=== PATIENT | male | born 1975 | race Caucasian/White ===

== ENCOUNTER 2023-04-07 13:29 | Outpatient (OUT) | payer OTHER, SELFPAY ==
[2023-04-07 14:21] LABS: Estimated Average Glucose 108 mg/dL; Glycohemoglobin A1C 5.4 % (4.5-6.2)
[2023-04-07 14:43] LABS: Alanine Aminotransferase 58 U/L (16-63); Albumin Globulin Ratio 1.1; Albumin Level 4.1 g/dL (3.4-5.0); Alkaline Phosphatase 60 U/L (46-116); Anion Gap 13.9; Aspartate Amino Transferase 20 U/L (15-37); BUN Creatinine Ratio 12.7; Bilirubin Total 0.9 mg/dL (0.2-1.0); Calcium 9.1 mg/dL (8.5-10.1); Carbon Dioxide 30.4 mmol/L (21.0-32.0); Chloride 101 mmol/L (98-107); Cholesterol 184 mg/dL (<=200); Estimated GFR (African America >60 (>=60); Estimated GFR (Non-African Ame >60 (>=60); Globulin 3.8 g/dL; Glucose 104 mg/dL (74-106); HDL Cholesterol 61 mg/dL (40-60); Potassium 4.3 mmol/L (3.5-5.1); Sodium 141 mmol/L (136-145); Total Protein 7.9 g/dL (6.4-8.2); Triglycerides 151 mg/dL (<=150); VLDL CHOLESTEROL 30.2 mg/dL
== END 2023-04-07 13:30 | disposition home or self-care (01) ==
LOC: LAB 13:29
PROVIDERS: PCP Family Medicine; Visit Provider Family Medicine
DX: Z00.00 Encounter for general adult medical examination without abnormal findings (principal); E78.49 Other hyperlipidemia; R73.01 Impaired fasting glucose; Z79.899 Other long term (current) drug therapy
CPT/HCPCS: 36415; 80053; 80061; 83036

== ENCOUNTER 2023-12-22 14:40 | Outpatient (OUT) | payer OTHER, SELFPAY ==
[2023-12-22 15:02] LABS: Basophils Absolute Auto 0.1 10^3/uL (0.0-0.1); Basophils Percent Auto 0.7 % (0.2-2.0); Eosinophils Absolute Auto 0.2 10^3/uL (0.0-0.7); Eosinophils Percent Auto 2.4 % (0.9-7.0); Hematocrit 46.6 % (42.0-54.0); Hemoglobin 16.9 g/dL (14.0-18.0); Immature Granulocytes Abs Auto 0.03 10^3/uL (0.00-0.03); Immature Granulocytes Pct Auto 0.4 % (0.0-0.5); Lymphocytes Absolute Auto 2.1 10^3/uL (1.2-3.8); Lymphocytes Percent Auto 29.8 % (20.5-60.0); Mean Corpuscular HGB Conc 36.3 g/dL (29.9-35.2); Mean Corpuscular Hemoglobin 31.2 pg (25.9-34.0); Mean Platelet Volume 9.2 fL (9.5-13.5); Monocytes Absolute Auto 0.7 10^3/uL (0.3-0.8); Monocytes Percent Auto 10.1 % (1.7-12.0); Neutrophils Percent Auto 56.6 % (43.0-75.0); Platelet Count 242 10^3/uL (150-450); Red Blood Count 5.42 10^6/uL (4.70-6.10); Red Cell Distribution Width 11.2 % (11.0-15.0)
--- OUTSIDE RECORDS SUMMARY | 2023-12-22 15:03 | XMS_ITS | CCD ---
Author Organization [facility] Care Team Providers Care Shirt Operator Name Role Phone MODE LANDRY Admitting Unavailable MODE LANDRY Attending Unavailable RAJNI, LAWRENCE Primary Care Unavailable ALFREDO PETTY Referring Unavailable HOY, DR BRAVO Admitting Unavailable HOY, DR BRAVO Attending Unavailable HOY, DR BRAVO Primary Care Unavailable HOY, DR BRAVO Consulting Unavailable HOY, DR BRAVO Admitting Unavailable HOY, DR BRAVO Attending Unavailable HOY, DR BRAVO Primary Care Unavailable HOY, DR BRAVO Consulting Unavailable HOY, DR BRAVO Admitting Unavailable HOY, DR BRAVO Attending Unavailable HOY, DR BRAVO Primary Care Unavailable HOY, DR BRAVO Consulting Unavailable MISC, DR PRECIADO Admitting Unavailable MISC, DR PRECIADO Attending Unavailable HOY, DR BRAVO Primary Care Unavailable MISC, DR PRECIADO Consulting Unavailable HOY, DR BRAVO Admitting Unavailable HOY, DR BRAVO Attending Unavailable HOY, DR BRAVO Primary Care Unavailable HOY, DR BRAVO Consulting Unavailable HOY, DR BRAVO Admitting Unavailable HOY, DR BRAVO Attending Unavailable HOY, DR BRAVO Primary Care Unavailable HOY, DR BRAVO Consulting Unavailable DON DC Referring Unavailable DC, DON Admitting Unavailable DC, DON Referring Unavailable DC, DON Attending Unavailable DC, DON Attending Unavailable DC, DON Attending Unavailable Ange Campbell Unavailable Medications Current Medications Medication Drug Class(es) Dates Sig (Normalized) Sig (Original) amoxicillin 875 mg oral tablet (1 source) Penicillin-class Antibacterial Start: 01-25-2023 take 1 tablet by mouth every eight hours Amoxicillin 875 MG 1 tablet Orally three times a day for 7 days Jan, Active ezetimibe 10 mg oral tablet (1 source) Dietary Cholesterol Absorption Inhibitor Ezetimibe 10 MG Oral for 21 Days Active famotidine 40 mg oral tablet (1 source) Histamine-2 Receptor Antagonist Famotidine 40 MG Oral for 21 Days Active simvastatin 40 mg oral tablet (1 source) HMG-CoA Reductase Inhibitor Simvastatin 40 MG Oral for 21 Days Active sucralfate 1000 mg oral tablet (1 source) Aluminum Complex Sucralfate 1 GM Oral for 21 Days Active Problems Active Problems Problem Classification Problem Date Documented Date Episodic/Chronic Disorders of lipid metabolism (1 source) Pure hypercholesterolemia, unspecified; Translations: [PURE HYPERCHOLESTEROLEMIA UNSPEC] Onset: 3 Chronic Esophageal disorders (2 sources) Gastro-esophageal reflux disease without esophagitis; Translations: [Gastro-esophageal reflux disease without esophagitis] Onset: 3 Chronic Esophageal disorders (2 sources) Esophageal disorders; Translations: [Gastro-esophageal reflux disease with esophagitis, without bleeding] Onset: 3 Other screening for suspected conditions (not mental disorders or infectious disease) (1 source) Encounter for screening for malignant neoplasm of prostate; Translations: [ENC SCREEN MALIG NEOPLASM PROSTATE] Onset: 3 Episodic Other upper respiratory disease (1 source) Nasal congestion; Translations: [NASAL CONGESTION] Onset: 2 Episodic Otitis media and related conditions (1 source) Otitis media, unspecified, bilateral Episodic Unclassified (3 sources) CONTACT W/AND (SUSP) EXPOS COVID-19; Translations: [CONTACT W/AND (SUSP) EXPOS COVID-19] Onset: 2 Unclassified (1 source) COUGH, UNSPECIFIED; Translations: [COUGH, UNSPECIFIED] Onset: 2 Viral infection (1 source) COVID-19; Translations: [COVID-19] Onset: 2 Past or Other Problems Problem Classification Problem Date Documented Da te Episodic/Chronic Unclassified (1 source) CONTACT W/AND (SUSP) EXPOS COVID-19; Translations: [CONTACT W/AND (SUSP) EXPOS COVID-19] Onset: 03-12-2022 Unclassified (1 source) Contact with and (suspected) exposure to covid-19 Z20.822 Results Test Name Value Interpretation Reference Range Facility COVID Quick Testingon 2022 Result Negative [facility] Other [place] ESOPHAGUS BARIUM SWALLOWo n 05-21-2022 FL ESOPHAGUS BARIUM SWALLOW FL ESOPHAGUS BARIUM SWALLOW 05/21/2022 8:59 AM SIGNS AND SYMPTOMS: Gastro esophageal reflux PROTOCOL: Fluoroscopic images of the esophagus were obtained after oral gas crystals redemonstration and during administration of barium paste contrast material. COMPARISON: None FINDINGS: There is normal transit of oral contrast through the esophagus and gas esophageal junction. Normal esophageal motility is demonstrated fluoroscopically. There is no evidence of mucosal thickening, mass, ulceration, or stricture. No active gastroesophageal reflux was elicited during the exam. Cumulative air Kerma: 96.99 mGy IMPRESSION: No active gastroesophageal reflux was elicited during the exam. Normal esophagram. Electronically signed: Rad Hollingsworth. Normal [facility] Follow-Upon 05-21-2022 Follow-Up [id number] Hayden Quiñones heber 1975 M Date Provider Department Center 05/21/2022 454-DON DC [facility] SURG Second Fl Family History Problem Relation Age of Onset Diabetes Mother Heart disease Father Family Status - Relation Status Age at Mother Father Level of Service:03820 [place] OFFICE/OUTPATIENT ESTABLISHED LOW [facility] 20-29 MIN Reason for Visit and Comments: Follow-up [503918] - Glenn is here today for a follow up visit for GERD, s/p EGD and esophogram. Normal [facility] 29on 05-15-2022 29 Encounter addended b y: Deedee Almazan RN on: 05/16/2022 1:53 PM Actions taken: Flowsheet accepted, Contacts section saved [facility] HISTOLOGY - TISSUE EXAMon LAB AP CASE REPORT [facility] Comment on above: Result Comment: Surg ical Pathology Case: [id number] Authorizing Provider: Don Dc MD Collected: 05/15/2022 1258 [facility]: 05/15/2022 1433 [facility] Endoscopy Pathologist: Sho Mercado MD Specimen: Gastroesophageal Junction, GEJUNTION r/o Barrettes Esophagus Performed By: #### L [id number] ####[facility] ([facility])[address] [place] [address] LAB AP CLINICAL INFORMATION Order Diagnoses Normal [facility] Comment on above: Result Comment: K21. 9 - Gastroesophageal reflux disease without esophagitis [ICD-10-CM] Performed By: #### L [id number] ####[facility] ([facility])[address] [place] [address] LAB AP GROSS DESCRIPTION [facility] Comment on above: Result Comment: Daina Bojorquez astroesophageal Junction. Part A is received in formalin labeled Glenn Sberna and GE JUNTION r/o Barrettes Esophagus. It consists of 2 pieces of andrade-pink, irregular mucosal tissue measuring 0.3 cm and 0.2 cm which are submitted in toto in 1 cassette. Marquez Mora, Pathologists' Key Carrier Performed By: #### L [id number] ####[facility] ([facility])[address] [place] [address] LAB AP MICROSCOPIC DESCRIPTION Microscopic examination performed. 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 -Esophageal squamous mucosa with no specific pathologic changes. -No evidence of intestinal metaplasia or dysplasia. Performed By: #### L [id number] ####[facility] ([facility])[address] [place] [address] HPon 05-15-2022 HP H&P reviewed. The yesica saunders was examined and there are no changes to the H&P. Normal [facility] NURSNOTEon 05-15-[address] Dc aware of vitals. Normal [facility] Consulton 05-01-2022 Consult [id number] Hayden Quiñoens heber 1975 M Date Provider Department Center 05/01/2022 Kiana-DON DC [facility] SURG Second Fl Family History Problem Relation Age of Onset Diabetes Mother Heart disease Father Family Status - Relation Status Age at Mother Father Level of Service:14681 [place] OFFICE/OUTPATIENT NEW LOW MDM 30-44 MINUTES Reason for Visit and Comments: Consult [484] - Glenn is here today for GERD. Patient states that he did have an EGD about 1 year with biopsy that was normal. Normal [facility] HPon 05-01-2022 HP Subjective Patient ID: Glenn Quiñones is a 46 y.o. male who presents for Consult (Gelnn is here today for GERD. Patient states that he did have an EGD about 1 year with biopsy that was normal. ). HPI 46 years old white male is complaining of heartburn, epigastric pain and the chest pain for around 2 years. He is treated with Carafate and the famotidine with inconsistent effect. Review of Systems Constitutional: Negative. HENT: Negative. Eyes: Negative. Respiratory: Negative. Cardiovascular: Negative. Gastrointestinal: Negative. Endocrine: Negative. Genitourinary: Negative. Musculoskeletal: Negative. Skin: Negative. Allergic/Immunologic: Negative. Neurological: Negative. Hematological: Negative. Psychiatric/Behavioral: Negative. Objective Visit Vitals BP 134/87 (BP Location: Left arm, Patient Position: Sitting) Pulse 94 Temp 37.1 ???C (98.7 ???F) Physical Exam Constitutional: Appearance: Normal appearance. He is obese. HENT: Head: Normocephalic and atraumatic. Eyes: Pupils: Pupils are equal, round, and reactive to light. Cardiovascular: Rate and Rhythm: Normal rate. Pulmonary: Effort: Pulmonary effort is normal. Abdominal: General: Abdomen is flat. Bowel sounds are normal. Palpations: Abdomen is soft. Musculoskeletal: General: Normal range of motion. Cervical back: Normal range of motion. Skin: Capillary Refill: Capillary refill takes more than 3 seconds. Neurological: Mental Status: He is alert. Assessment/Plan Heartburn Epigastric pain Schedule EGD and esophagram. No diagnosis found. No orders of the defined types were placed in this encounter. No results found for this or any previous visit (from the past 36 hour(s)). No follow-ups on file. Normal [facility] LIPID PROFILEon 04-25-2022 CHOL-HDL RATIO NORM SEE BELOW Normal [facility] Comment on above: Result Comment: 3.3 - 4.4 LOW RISK 4.4 - 7.1 AVERAGE RISK 7.1 - 11.0 MODERATE RISK >11.0 HIGH RISK Performed By: #### L IPID #### [facility] [address] [address] [address] Enriqueta Torres Cholesterol [Mass/Vol] 229 mg/dL Critically high <=200 [facility] Comment on above: Performed By: #### L IPID #### [facility] [address] [address] [address] Enriqueta Torres Cholesterol in HDL [Mass/Vol] 51 mg/dL Normal 40-60 [facility] Comment on above: Performed By: #### L IPID #### [facility] [address] [address] [address] Enriqueta Torres Cholesterol in LDL [Mass/Vol] 126.4 mg/dL Normal [facility] Comment on above: Performed By: #### L IPID #### [facility] [address] [address] [address] Enriqueta Torres Cholesterol.total /Cholesterol in HDL [Mass ratio] 4.5 {ratio} Normal [facility] Comment on above: Performed By: #### L IPID #### [facility] [address] [address] [address] Enriqueta Torres HDL NORMAL > or = 60 mg/dl - LO W CARDIOVASCULAR RISK <40 mg/dl - HIGH CARDIOVASCULAR RISK Normal [facility] Comment on above: Performed By: #### L IPID #### [facility] [address] [address] [address] Enriqueta Torres LDL CALC NORMAL SEE BELOW Normal [facility] Comment on above: Result Comment: <100 mg/dl OPTIMAL 100 - 129 mg/dl NEAR OR ABOVE OPTIMAL 130 - 159 mg/dl BORDERLINE HIGH 160 - 189 mg/dl HIGH >190 mg/dl VERY HIGH Performed By: #### L IPID #### [facility] [address] [address] [address] Enriqueta Torres Triglyceride [Mass/Vol] 258 mg/dL Critically high <=150 [facility] Comment on above: Performed By: #### L IPID #### [facility] [address] [address] [address] Enriqueta Torres VLDL CALC 51.6 mg/dL Normal [facility] Comment on above: Performed By: #### L IPID #### [facility] [address] [place] [address] Dr. Enriqueta Torres OCC BLD IMMUNO SCREENon OCCULT BLOOD Negative Normal NEGATIVE [facility] Comment on above: Performed By: #### O BSCRN #### [facility] [address] [place] [address] Dr. Enriqueta Torres TESTOSTERONE, TOTALon 2022 Testosterone [Mass/Vol] 285 ng/dL Normal 264-916 [facility] Comment on above: Result Comment: Adul t male reference interval is based on a population of healthy nonobese males (BMI <30) between 19 and 39 years old. armando Mason.al. JCEM 2017,102;8802-8871. PMID: [id number]. Performed By: #### T ESTTOT #### [facility] [address] [place] [address] Dr. Enriqueta Torres CBC AUTO DIFFon 04-24-2022 BASO # 0.1 103/ul Normal 0.0-0.1 [facility] Comment on above: Performed By: #### L IPID #### [facility] [address] [place] [address] Dr. Enriqueta Torres Basophils/100 WBC (Bld) 0.6 % Normal 0.2-2.0 [facility] Comment on above: Performed By: #### L IPID #### [facility] [address] [place] [address] Dr. Enriqueta Torres EO # 0.1 103/ul Normal 0.0-0.7 [facility] Comment on above: Performed By: #### L IPID #### [facility] [address] [place] [address] Dr. Enriqueta Torres Eosinophils/100 WBC (Bld) 1.1 % Normal 0.9-7.0 [facility] Comment on above: Performed By: #### L IPID #### [facility] [address] [place] [address] Dr. Enriqueta Torres Erythrocyte distribution width (RBC) [Ratio] 12.2 % Normal 11.0-15.0 [facility] Comment on above: Performed By: #### L IPID #### [facility] [address] [place] [address] Dr. Enriqueta Torres Hematocrit (Bld) [Volume fraction] 46.2 % Normal 42.0-54.0 [facility] Comment on above: Performed By: #### L IPID #### [facility] [address] [place] [address] Dr. Enriqueta Torres Hemoglobin (Bld) [Mass/Vol] 16.5 g/dL Normal 14.0-18.0 [facility] Comment on above: Performed By: #### L IPID #### [facility] [address] [place] [address] Dr. Enriqueta Torres IG # 0.06 10e3/ul Critically high 0.00-0.03 [facility] Comment on above: Performed By: #### L IPID #### [facility] [address] [place] [address] Dr. Enriqueta Torres IG % 0.7 % Critically high 0.0-0.5 [facility] Comment on above: Performed By: #### L IPID #### [facility] [address] [place] [address] Dr. Enriqueta Torres LYMPH # 2.6 103/ul Normal 1.2-3.8 [facility] Comment on above: Performed By: #### L IPID #### [facility] [address] [place] [address] Dr. Enriqueta Torres Lymphocytes/100 WBC (Bld) 31.2 % Normal 20.5-60.0 [facility] Comment on above: Performed By: #### L IPID #### [facility] [address] [place] [address] Dr. Enriqueta Torres MANUAL DIFF REQ NO Normal [facility] Comment on above: Performed By: #### L IPID #### [facility] [address] [place] [address] Dr. Enriqueta Torres MCH (RBC) [Entitic mass] 31.6 pg Normal 25.9-34.0 [facility] Comment on above: Performed By: #### L IPID #### [facility] [address] [place] [address] Dr. Enriqueta Torres MCHC (RBC) [Mass/Vol] 35.7 g/dL Critically high 29.9-35.2 [facility] Comment on above: Performed By: #### L IPID #### [facility] [address] [address] [address] Enriqueta Torres MCV (RBC) [Entitic vol] 88.5 fL Normal 80.0-94.0 [facility] Comment on above: Performed By: #### L IPID #### [facility] [address] [place] [address] Dr. Enriqueta Torres MONO # 0.8 103/ul Normal 0.3-0.8 [facility] Comment on above: Performed By: #### L IPID #### [facility] [address] [place] [address] Dr. Enriqueta Torres Monocytes/100 WBC (Bld) 10.2 % Normal 1.7-12.0 [facility] Comment on above: Performed By: #### L IPID #### [facility] [address] [place] [address] Dr. Enriqueta Torres NEUT # 4.6 103/ul Normal 1.4-6.5 [facility] Comment on above: Performed By: #### L IPID #### [facility] [address] [place] [address] Dr. Enriqueta Torres Neutrophils/100 WBC (Bld) 56.2 % Normal 43.0-75.0 [facility] Comment on above: Performed By: #### L IPID #### [facility] [address] [place] [address] Dr. Enriqueta Torres Platelet mean volume (Bld) [Entitic vol] 9.1 fL Critically low 9.5-13.5 [facility] Comment on above: Performed By: #### L IPID #### [facility] [address] [address] [address] Enriqueta Torres PLT 260 103/ul Normal 150-450 [facility] Comment on above: Performed By: #### L IPID #### [facility] [address] [address] [address] Enriqueta Torres RBC 5.22 106/ul Normal 4.70-6.10 [facility] Comment on above: Performed By: #### L IPID #### [facility] [address] [address] [address] Enriqueta Torres WBC 8.2 103/ul Normal 4.0-11.0 [facility] Comment on above: Performed By: #### L IPID #### [facility] [address] [place] [address] Dr. Enriqueta Torres DIRECT LDLon 04-24-2022 Cholesterol in LDL [Mass/Vol] 129 mg/dL Normal [facility] Comment on above: Performed By: #### O BSCRN #### [facility] [address] [place] [address] Dr. Enriqueta Torres DLDL NORMAL SEE BELOW Normal [facility] Comment on above: Result Comment: <100 mg/dl OPTIMAL 100 - 129 mg/dl NEAR OR ABOVE OPTIMAL 130 - 159 mg/dl BORDERLINE HIGH 160 - 189 mg/dl HIGH >190 mg/dl VERY HIGH Performed By: #### O BSCRN #### [facility] [address] [place] [address] Dr. Enriqueta Torres FREE THYROXINE INDEX T7on FTI 2.31 Normal 1.30-4.50 [facility] Comment on above: Performed By: #### L IPID #### [facility] [address] [place] [address] Dr. Enriqueta Torres T3U 34.0 % Normal 33.0-40.0 [facility] Comment on above: Performed By: #### L IPID #### [facility] [address] [place] [address] Dr. Enriqueta Torres T4 [Mass/Vol] 6.80 ug/dL Normal 4.50-12.10 [facility] Comment on above: Performed By: #### L IPID #### [facility] [address] [place] [address] Dr. Enriqueta Torres GLYCOHEMOGLOBIN A1Con 2022 ADA RECOMMENDATION SEE BELOW Normal [facility] Comment on above: Result Comment: ADA RECOMMENDED LIMIT 4.0 - 6.0 ADA THERAPEUTIC TARGET < 7.0 ACTION SUGGESTED > 7.0 Performed By: #### L IPID #### [facility] [address] [place] [address] Dr. Enriqueta Torres Glucose [Mass/Vol] 126 mg/dL Normal [facility] Comment on above: Performed By: #### L IPID #### [facility] [address] [place] [address] Dr. Enriqueta Torres HbA1c (Bld) [Mass fraction] 6.0 % Normal 4.5-6.2 [facility] Comment on above: Performed By: #### L IPID #### [facility] [address] [place] [address] Dr. Enriqueta Torres LIPID PROFILEon 04-24-2022 CHOL-HDL RATIO NORM SEE BELOW Normal [facility] Comment on above: Result Comment: 3.3 - 4.4 LOW RISK 4.4 - 7.1 AVERAGE RISK 7.1 - 11.0 MODERATE RISK >11.0 HIGH RISK Performed By: #### L IPID #### [facility] [address] [place] [address] Dr. Enriqueta Torres Cholesterol [Mass/Vol] 250 mg/dL Critically high <=200 [facility] Comment on above: Performed By: #### L IPID #### [facility] [address] [place] [address] Dr. Enriqueta Torres Cholesterol in HDL [Mass/Vol] 42 mg/dL Normal 40-60 [facility] Comment on above: Performed By: #### L IPID #### [facility] [address] [place] [address] Dr. Enriqueta Torres Cholesterol.total /Cholesterol in HDL [Mass ratio] 6.0 {ratio} Normal [facility] Comment on above: Performed By: #### L IPID #### [facility] [address] [address] [address] Enriqueta Torres HDL NORMAL > or = 60 mg/dl - LO W CARDIOVASCULAR RISK <40 mg/dl - HIGH CARDIOVASCULAR RISK Normal [facility] Comment on above: Performed By: #### L IPID #### [facility] [address] [address] [address] Enriqueta Torres LDL CALC NORMAL SEE BELOW Normal [facility] Comment on above: Result Comment: <100 mg/dl OPTIMAL 100 - 129 mg/dl NEAR OR ABOVE OPTIMAL 130 - 159 mg/dl BORDERLINE HIGH 160 - 189 mg/dl HIGH >190 mg/dl VERY HIGH Performed By: #### L IPID #### [facility] [address] [place] [address] Dr. Enriqueta Torres Triglyceride [Mass/Vol] 507 mg/dL Critically high <=150 [facility] Comment on above: Performed By: #### L IPID #### [facility] [address] [place] [address] Dr. Enriqueta Torres VLDL CALC 101.4 mg/dL Normal [facility] Comment on above: Performed By: #### L IPID #### [facility] [address] [place] [address] Dr. Enriqueta Torres PROF 14(COMP METB)on 023 Albumin [Mass/Vol] 4.2 g/dL Normal 3.4-5.0 [facility] Comment on above: Performed By: #### L IPID #### [facility] [address] [place] [address] Dr. Enriqueta Torres Albumin/Globulin [Mass ratio] 1.2 {ratio} Normal [facility] Comment on above: Performed By: #### L IPID #### [facility] [address] [place] [address] Dr. Enriqueta Torres ALP [Catalytic activity/Vol] 69 U/L Normal 46-116 [facility] Comment on above: Performed By: #### L IPID #### [facility] [address] [place] [address] Dr. Enriqueta Torres ALT [Catalytic activity/Vol] 69 U/L Critically high 16-63 [facility] Comment on above: Performed By: #### L IPID #### [facility] [address] [address] [address] Enriqueta Torres Anion gap [Moles/Vol] 13.3 mmol/L Normal [facility] Comment on above: Performed By: #### L IPID #### [facility] [address] [address] [address] Enriqueta Torres AST [Catalytic activity/Vol] 20 U/L Normal 15-37 [facility] Comment on above: Performed By: #### L IPID #### [facility] [address] [address] [address] Enriqueta Torres Bilirubin [Mass/Vol] 1.0 mg/dL Normal 0.2-1.0 [facility] Comment on above: Performed By: #### L IPID #### [facility] [address] [address] [address] Enriqueta Torres Calcium [Mass/Vol] 9.4 mg/dL Normal 8.5-10.1 [facility] Comment on above: Performed By: #### L IPID #### [facility] [address] [address] [address] Enriqueta Torres Chloride [Moles/Vol] 99 mmol/L Normal 98-107 [facility] Comment on above: Performed By: #### L IPID #### [facility] [address] [address] [address] Enriqueta Torres CO2 [Moles/Vol] 30.0 mmol/L Normal 21.0-32.0 [facility] Comment on above: Performed By: #### L IPID #### [facility] [address] [address] [address] Erniqueta Torres Creatinine [Mass/Vol] 1.01 mg/dL Normal 0.70-1.30 [facility] Comment on above: Performed By: #### L IPID #### [facility] [address] [address] [address] Enriqueta Torres EGFR-AF WELSH >60 Normal >=60 [facility] Comment on above: Performed By: #### L IPID #### [facility] [address] [address] [address] Enriqueta Torres EGFR-NON AF WELSH >60 Normal >=60 [facility] Comment on above: Performed By: #### L IPID #### [facility] [address] [address] [address] Enriqueta Torres Globulin (S) [Mass/Vol] 3.5 g/dL Normal [facility] Comment on above: Performed By: #### L IPID #### [facility] [address] [address] [address] Enriqueta Torres Glucose [Mass/Vol] 134 mg/dL Critically high 74-106 [facility] Comment on above: Performed By: #### L IPID #### [facility] [address] [place] [address] Dr. Enriqueta Torres Potassium [Moles/Vol] 4.3 mmol/L Normal 3.5-5.1 [facility] Comment on above: Performed By: #### L IPID #### [facility] [address] [address] [address] Enriqueta Torres Protein [Mass/Vol] 7.7 g/dL Normal 6.4-8.2 [facility] Comment on above: Performed By: #### L IPID #### [facility] [address] [place] [address] Dr. Enriqueta Torres Sodium [Moles/Vol] 138 mmol/L Normal 136-145 [facility] Comment on above: Performed By: #### L IPID #### [facility] [address] [address] [address] Enriqueta Torres Urea nitrogen [Mass/Vol] 17.0 mg/dL Normal 7.0-18.0 [facility] Comment on above: Performed By: #### L IPID #### [facility] [address] [address] [address] Enriqueta Torres Urea nitrogen/Creatini ne [Mass ratio] 16.8 mg/mg Normal [facility] Comment on above: Performed By: #### L IPID #### [facility] [address] [address] [address] Enriqueta Torres TSHon 04-24-2022 TSH 1.606 uIU/mL Normal 0.358-3.740 [facility] Comment on above: Performed By: #### L IPID #### [facility] [address] [place] [address] Dr. Enriqueta Torres Covid-19 PCR ([facility])on 02-15 SARS-CoV-2 (COVID-19) RNA CESAR+probe Ql (Unsp spec) Detected Critically abnormal NOT DETECTED [facility] Comment on above: Result Comment: This test is not yet approved or cleared by the [place] FDA. When there are no FDA-approved or cleared tests available, and other criteria are met, FDA can make tests available under an emergency access mechanism called an Emergency Use Authorization (EUA). The EUA for this test is supported by the [place] of Health and Human Service's declaration that circumstances exist to justify the emergency use of in vitro diagnostics for the detection and/or diagnosis of the virus that causes COVID-19. This EUA will remain in effect for the duration of the COVID-19 declaration justifying emergency of IVDs, unless it is terminated or revoked by the FDA (after which the test may no longer be used). Performed By: #### O BSCRN #### [facility] [address] [place] [address] Dr. Enriqueta Torres INFLUENZA A AND B AGon 03-12 [facility] SEE BELOW Normal [facility] Comment on above: Result Comment: Nega tive for Flu A protein angiten. Infection due to Flu A cannot be ruled out. Flu A angiten in the sample may be below the detection limit of the test. Performed By: #### L IPID #### [facility] [address] [place] [address] Dr. Enriqueta Torres [facility] SEE BEL[facility] Normal [facility] Comment on above: Result Comment: Nega tive for Flu B protein antigen. Infection due to Flu B cannot be ruled out. Flu B antigen in the sample may be below the detection limit of the test. Performed By: #### L IPID #### [facility] [address] [place] [address] Dr. Enriqueta Torres INFLUENZA A AG Negative Normal NEGATIVE SEE COMMENT [facility] Comment on above: Performed By: #### L IPID #### [facility] [address] [place] [address] Dr. Enriqueta Torres INFLUENZA B AG Negative Normal NEGATIVE SEE COMMENT [facility] Comment on above: Performed By: #### L IPID #### [facility] [address] [place] [address] Dr. Enriqueta Torres INTERNAL CONTROLS Within Normal Limits Normal Wi thin Normal Limits [facility] Comment on above: Performed By: #### L IPID #### [facility] [address] [place] [address] Dr. Enriqueta Torres Covid-19 PCR ([facility])on SARS-CoV-2 (COVID-19) RNA CESAR+probe Ql (Unsp spec) Not detected Normal NOT DETECTED [facility] Comment on above: Result Comment: When diagnostic testing is negative, the possibility of a false negative should be considered in the context of a patient's recent exposures and the presence of clinical signs and symptoms consistent with SARS-CoV-2. This test is not yet approved or cleared by the [place] FDA. When there are no FDA-approved or cleared tests available, and other criteria are met, FDA can make tests available under an emergency access mechanism called an Emergency Use Authorization (EUA). The EUA for this test is supported by the [place] of Health and Human Service's declaration that circumstances exist to justify the emergency use of in vitro diagnostics for the detection and/or diagnosis of the virus that causes COVID-19. This EUA will remain in effect for the duration of the COVID-19 declaration justifying emergency of IVDs, unless it is terminated or revoked by the FDA (after which the test may no longer be used). Performed By: #### O BSCRN #### [facility] [address] [place] [address] Dr. Enriqueta Torres OCC BLD IMMUNO SCREENon 06-16 OCCULT BLOOD Negative Normal NEGATIVE [facility] Comment on above: Performed By: #### O BSCRN #### [facility] [address] [address] [address] Enriqueta Torres CBC AUTO DIFFon 07-04-2021 BASO # 0.1 103/ul Normal 0.0-0.1 [facility] Comment on above: Performed By: #### C BC #### [facility] [address] [address] [address] Enriqueta Torres Basophils/100 WBC (Bld) 0.8 % Normal 0.2-2.0 [facility] Comment on above: Performed By: #### C BC #### [facility] [address] [address] [address] Enriqueta Torres EO # 0.1 103/ul Normal 0.0-0.7 [facility] Comment on above: Performed By: #### C BC #### [facility] [address] [place] [address] Dr. Enriqueta Torres Eosinophils/100 WBC (Bld) 1.8 % Normal 0.9-7.0 [facility] Comment on above: Performed By: #### C BC #### [facility] [address] [address] [address] Enriqueta Torres Erythrocyte distribution width (RBC) [Ratio] 11.5 % Normal 11.0-15.0 [facility] Comment on above: Performed By: #### C BC #### [facility] [address] [place] [address] Dr. Enriqueta Torres Hematocrit (Bld) [Volume fraction] 48.2 % Normal 42.0-54.0 [facility] Comment on above: Performed By: #### C BC #### [facility] [address] [address] [address] Enriqueta Torres Hemoglobin (Bld) [Mass/Vol] 16.9 g/dL Normal 14.0-18.0 [facility] Comment on above: Performed By: #### C BC #### [facility] [address] [address] [address] Enriqueta Torres IG # 0.04 10e3/ul Critically high 0.00-0.03 [facility] Comment on above: Performed By: #### C BC #### [facility] [address] [place] [address] Dr. Enriqueta Torres IG % 0.5 % Normal 0.0-0.5 [facility] Comment on above: Performed By: #### C BC #### [facility] [address] [place] [address] Dr. Enriqueta Torres LYMPH # 1.8 103/ul Normal 1.2-3.8 [facility] Comment on above: Performed By: #### C BC #### [facility] [address] [place] [address] Dr. Enriqueta Torres Lymphocytes/100 WBC (Bld) 24.0 % Normal 20.5-60.0 [facility] Comment on above: Performed By: #### C BC #### [facility] [address] [place] [address] Dr. Enriqueta Torres MANUAL DIFF REQ NO Normal [facility] Comment on above: Performed By: #### C BC #### [facility] [address] [place] [address] Dr. Enriqueta Torres MCH (RBC) [Entitic mass] 30.2 pg Normal 25.9-34.0 [facility] Comment on above: Performed By: #### C BC #### [facility] [address] [place] [address] Dr. Enriqueta Torres MCHC (RBC) [Mass/Vol] 35.1 g/dL Normal 29.9-35.2 [facility] Comment on above: Performed By: #### C BC #### [facility] [address] [place] [address] Dr. Enriqueta Torres MCV (RBC) [Entitic vol] 86.1 fL Normal 80.0-94.0 [facility] Comment on above: Performed By: #### C BC #### [facility] [address] [place] [address] Dr. Enriqueta Torres MONO # 0.8 103/ul Normal 0.3-0.8 [facility] Comment on above: Performed By: #### C BC #### [facility] [address] [place] [address] Dr. Enriqueta Torres Monocytes/100 WBC (Bld) 10.2 % Normal 1.7-12.0 [facility] Comment on above: Performed By: #### C BC #### [facility] [address] [place] [address] Dr. Enriqueta Torres NEUT # 4.8 103/ul Normal 1.4-6.5 [facility] Comment on above: Performed By: #### C BC #### [facility] [address] [place] [address] Dr. Enriqueta Torres Neutrophils/100 WBC (Bld) 62.7 % Normal 43.0-75.0 [facility] Comment on above: Performed By: #### C BC #### [facility] [address] [place] [address] Dr. Enriqueta Torres Platelet mean volume (Bld) [Entitic vol] 9.2 fL Critically low 9.5-13.5 [facility] Comment on above: Performed By: #### C BC #### [facility] [address] [place] [address] Dr. Enriqueta Torres PLT 262 103/ul Normal 150-450 [facility] Comment on above: Performed By: #### C BC #### [facility] [address] [place] [address] Dr. Enriqueta Torres RBC 5.60 106/ul Normal 4.70-6.10 [facility] Comment on above: Performed By: #### C BC #### [facility] [address] [place] [address] Dr. Enriqueta Torres WBC 7.6 103/ul Normal 4.0-11.0 [facility] Comment on above: Performed By: #### C BC #### [facility] [address] [place] [address] Dr. Enriqueta Torres FREE T3on 07-04-2021 FREE T3 2.92 pg/mlL Normal 2.77-5.27 [facility] Comment on above: Performed By: #### T 4, TSH, FT3, LIPID, CMP #### [facility] [address] [place] [address] Dr. Enriqueta Torres GLYCOHEMOGLOBIN A1Con 2021 ADA RECOMMENDATION ADA THERAPEUTIC TARGET 6.0 - 7.0 ACTION SUGGESTED > 7.0 Normal [facility] Comment on above: Performed By: #### L IPID #### [facility] [address] [place] [address] Dr. Enriqueta Torres Glucose [Mass/Vol] 117 mg/dL Normal [facility] Comment on above: Performed By: #### L IPID #### [facility] [address] [place] [address] Dr. Enriqueta Torres HbA1c (Bld) [Mass fraction] 5.7 % Normal <=6.0 [facility] Comment on above: Performed By: #### L IPID #### [facility] [address] [place] [address] Dr. Enriqueta Torres LIPID PROFILEon 07-04-2021 CHOL-HDL RATIO NORM SEE BELOW Normal [facility] Comment on above: Result Comment: 3.3 - 4.4 LOW RISK 4.4 - 7.1 AVERAGE RISK 7.1 - 11.0 MODERATE RISK >11.0 HIGH RISK Performed By: #### T 4, TSH, FT3, LIPID, CMP #### [facility] [address] [place] [address] Dr. Enriqueta Torres Cholesterol [Mass/Vol] 232 mg/dL Critically high <=200 [facility] Comment on above: Performed By: #### T 4, TSH, FT3, LIPID, CMP #### [facility] [address] [place] [address] Dr. Enriqueta Torres Cholesterol in HDL [Mass/Vol] 52 mg/dL Normal 40-60 [facility] Comment on above: Performed By: #### T 4, TSH, FT3, LIPID, CMP #### [facility] [address] [place] [address] Dr. Enriqueta Torres Cholesterol in LDL [Mass/Vol] 139.4 mg/dL Normal [facility] Comment on above: Performed By: #### T 4, TSH, FT3, LIPID, CMP #### [facility] [address] [address] [address] Enriqueta Torres Cholesterol.total /Cholesterol in HDL [Mass ratio] 4.5 {ratio} Normal [facility] Comment on above: Performed By: #### T 4, TSH, FT3, LIPID, CMP #### [facility] [address] [address] [address] Enriqueta Torres HDL NORMAL > or = 60 mg/dl - LO W CARDIOVASCULAR RISK <40 mg/dl - HIGH CARDIOVASCULAR RISK Normal [facility] Comment on above: Performed By: #### T 4, TSH, FT3, LIPID, CMP #### [facility] [address] [address] [address] Enriqueta Torres LDL CALC NORMAL SEE BELOW Normal [facility] Comment on above: Result Comment: <100 mg/dl OPTIMAL 100 - 129 mg/dl NEAR OR ABOVE OPTIMAL 130 - 159 mg/dl BORDERLINE HIGH 160 - 189 mg/dl HIGH >190 mg/dl VERY HIGH Performed By: #### T 4, TSH, FT3, LIPID, CMP #### [facility] [address] [address] [address] Enriqueta Torres Triglyceride [Mass/Vol] 203 mg/dL Critically high <=150 [facility] Comment on above: Performed By: #### T 4, TSH, FT3, LIPID, CMP #### [facility] [address] [address] [address] Enriqueta Torres VLDL CALC 40.6 mg/dL Normal [facility] Comment on above: Performed By: #### T 4, TSH, FT3, LIPID, CMP #### [facility] [address] [address] [address] Enriqueta Torres PROF 14(COMP METB)on 022 Albumin [Mass/Vol] 4.0 g/dL Normal 3.4-5.0 [facility] Comment on above: Performed By: #### T 4, TSH, FT3, LIPID, CMP #### [facility] [address] [place] [address] Dr. Enriqueta Torres Albumin/Globulin [Mass ratio] 1.1 {ratio} Normal [facility] Comment on above: Performed By: #### T 4, TSH, FT3, LIPID, CMP #### [facility] [address] [place] [address] Dr. Enriqueta Torres ALP [Catalytic activity/Vol] 69 U/L Normal 46-116 [facility] Comment on above: Performed By: #### T 4, TSH, FT3, LIPID, CMP #### [facility] [address] [place] [address] Dr. Enriqueta Torres ALT [Catalytic activity/Vol] 45 U/L Normal 16-63 [facility] Comment on above: Performed By: #### T 4, TSH, FT3, LIPID, CMP #### [facility] [address] [place] [address] Dr. Enriqueta Torres Anion gap [Moles/Vol] 10.6 mmol/L Normal [facility] Comment on above: Performed By: #### T 4, TSH, FT3, LIPID, CMP #### [facility] [address] [place] [address] Dr. Enriqueta Torres AST [Catalytic activity/Vol] 18 U/L Normal 15-37 [facility] Comment on above: Performed By: #### T 4, TSH, FT3, LIPID, CMP #### [facility] [address] [place] [address] Dr. Enriqueta Torres Bilirubin [Mass/Vol] 0.7 mg/dL Normal 0.2-1.3 [facility] Comment on above: Performed By: #### T 4, TSH, FT3, LIPID, CMP #### [facility] [address] [place] [address] Dr. Enriqueta Torres Calcium [Mass/Vol] 8.8 mg/dL Normal 8.5-10.1 [facility] Comment on above: Performed By: #### T 4, TSH, FT3, LIPID, CMP #### [facility] [address] [place] [address] Dr. Enriqueta Torres Chloride [Moles/Vol] 101 mmol/L Normal 98-107 [facility] Comment on above: Performed By: #### T 4, TSH, FT3, LIPID, CMP #### [facility] [address] [place] [address] Dr. Enriqueta Torres CO2 [Moles/Vol] 31.5 mmol/L Critically high 22.0-30.0 [facility] Comment on above: Performed By: #### T 4, TSH, FT3, LIPID, CMP #### [facility] [address] [place] [address] Dr. Enriqueta Torres Creatinine [Mass/Vol] 1.00 mg/dL Normal 0.66-1.25 [facility] Comment on above: Performed By: #### T 4, TSH, FT3, LIPID, CMP #### [facility] [address] [place] [address] Dr. Enriqueta Torres EGFR-AF WELSH >60 Normal >=60 [facility] Comment on above: Performed By: #### T 4, TSH, FT3, LIPID, CMP #### [facility] [address] [place] [address] Dr. Enriqueta Torres EGFR-NON AF WELSH >60 Normal >=60 [facility] Comment on above: Performed By: #### T 4, TSH, FT3, LIPID, CMP #### [facility] [address] [place] [address] Dr. Enriqueta Torres Globulin (S) [Mass/Vol] 3.6 g/dL Normal [facility] Comment on above: Performed By: #### T 4, TSH, FT3, LIPID, CMP #### [facility] [address] [place] [address] Dr. Enriqueta Torres Glucose [Mass/Vol] 130 mg/dL Critically high 74-106 [facility] Comment on above: Performed By: #### T 4, TSH, FT3, LIPID, CMP #### [facility] [address] [place] [address] Dr. Enriqueta Torres Potassium [Moles/Vol] 4.1 mmol/L Normal 3.4-5.0 [facility] Comment on above: Performed By: #### T 4, TSH, FT3, LIPID, CMP #### [facility] [address] [place] [address] Dr. Enriqueta Torres Protein [Mass/Vol] 7.6 g/dL Normal 6.1-8.2 [facility] Comment on above: Performed By: #### T 4, TSH, FT3, LIPID, CMP #### [facility] [address] [place] [address] Dr. Enriqueta Torres Sodium [Moles/Vol] 139 mmol/L Normal 137-145 [facility] Comment on above: Performed By: #### T 4, TSH, FT3, LIPID, CMP #### [facility] [address] [place] [address] Dr. Enriqueta Torres Urea nitrogen [Mass/Vol] 16.0 mg/dL Normal 7.0-18.0 [facility] Comment on above: Performed By: #### T 4, TSH, FT3, LIPID, CMP #### [facility] [address] [place] [address] Dr. Enriqueta Torres Urea nitrogen/Creatini ne [Mass ratio] 16.0 mg/mg Normal [facility] Comment on above: Performed By: #### T 4, TSH, FT3, LIPID, CMP #### [facility] [address] [place] [address] Dr. Enriqueta Torres T4on 07-04-2021 T4 [Mass/Vol] 6.70 ug/dL Normal 5.53-11.00 [facility] Comment on above: Performed By: #### T 4, TSH, FT3, LIPID, CMP #### [facility] [address] [place] [address] Dr. Enriqueta Torres TSHon 07-04-2021 TSH 0.998 uIU/mL Normal 0.470-4.680 [facility] Comment on above: Performed By: #### T 4, TSH, FT3, LIPID, CMP #### [facility] [address] [place] [address] Dr. Enriqueta Torres TSH RANGE SEE BELOW Normal [facility] Comment on above: Result Comment: <0.3 4 UIU/ml HYPERTHYROID 0.34-5.60 UIU/ml EUTHYROID >5.60 UIU/ml HYPOTHYROID Performed By: #### T 4, TSH, FT3, LIPID, CMP #### [facility] [address] [address] [address] Enriqueta Torres Ambulatory Clinical Summaryo n 04-04-2020 Ambulatory Clinical Summary {[id number] Normal Granda [facility] General Surgery Office/Clini c Noteon 04-04-2020 General Surgery Office/Clinic Note Chief Complaint post operative follow up HPI Staff 6 day post operative follow up post EGD with antral and esophageal biopsies. Continues with GERD sx's. Started on Carafate and Famotidine and feels these have been somewhat helpful. History of Present Illness 6 days s/p EGD with antral and distal esophageal biopsies due to gastritis, esophagitis; negative for H pylori or Anderson's esophagus; symptoms improving with Pepcid and Carafate; Review of Systems PHQ Score Initial Depression Screen Score: 0 ROS - Provider Constitutional: no fever, no sweats, no weight loss. Eyes: no glasses, no blurred vision, no visual loss. ENMT: no dentures, no hoarseness, no swallowing difficulties, no hearing loss, no ear infection(s), no nose bleeds. Cardiovascular: normal blood pressure, no chest pain, regular heartbeat, no heart murmur. Respiratory: no shortness of breath, no cough, no asthma, no wheezing. Gastrointestinal: no nausea, no vomiting, no diarrhea, no constipation, no blood in stool, no change in bowel habits, no abdominal pain, no hepatitis. Genitourinary: no kidney stones, no urine infection, no dysuria. Musculoskeletal: no pain, no weakness. Skin: no changing moles, no rash, no skin lumps. Neurologic: no seizures, no epilepsy, no headache. Psychiatric: no emotional or psychiatric problem. Heme/Lymph: no bleeding problems, no anemia, no blood clots, no transfusions. Allergy/Immunologic: no swollen lymph nodes/glands, no IV drug abuse. Other: Additional ROS info: Except as noted in the above Review of Systems and in the History of Present Illness, all other systems have been reviewed and are negative or noncontributory. Physical Exam Vitals & Measurements T: 36.5 ?C (Tympanic) Assessment/Plan 1. GERD - Gastro-esophageal reflux disease (K21.9: Gastro-esophageal reflux disease without esophagitis) continue current treatment; recommend decreasing or ideally quitting tobacco use; weight loss to improve symptoms as well; call with problems/questions. Follow-up No qualifying data available Problem List/Past Medical History Ongoing Chest pain due to GERD Chews tobacco regularly Eczema GERD - Gastro-esophageal reflux disease Hyperlipidemia Primary hypertriglyceridemia PUD (peptic ulcer disease) Pyloric stenosis Sleep apnea Historical No qualifying data Procedure/Surgical History EGD - Esophagogastroduodenoscopy (03/29/2020), Cardiac catheter (07/23/2018), Congenital pyloric stenosis. Medications Dulera 100 mcg-5 mcg/inh inhalation aerosol, 2 puff(s), Inhalation, BID famotidine 40 mg Tab, 40 mg= 1 tab(s), Oral, BID simvastatin 40 mg Tab, Oral, Once a day (at bedtime) sucralfate tab, 1 gm= 1 tab(s), Oral, QIDACHS Ventolin HFA 90 mcg/inh Aerosol, 1 puff(s), Inhalation, Once, PRN Allergies No Known Allergies No Known Medication Allergies Social History Alcohol - Denies Alcohol Use, 08/26/2018 Substance Abuse - Denies Substance Abuse, 08/26/2018 Tobacco Former smoker, quit more than 30 days ago Tobacco Use:. Smokeless tobacco user within last 30 days Smokeless Tobacco Use:. Cigarettes, Oral, Stopped age 32 Years., 04/04/2020 Family History Cardiac arrest: Father. Normal [facility] Comment on above: Result Comment: Elec tronically Signed By: ROMEO HARPER, Mario Lundberg\Date and Time Signed: 04/04/20 16:06 EST Operative Reporton Operative Report [id number]:127 Normal [facility] Pathology Noteon 03-31-2020 Pathology Note [id number]:127 Normal [facility] Lab Reportson 03-27-2020 Lab Reports [id number]:127 Normal [facility] Facesheeton 03-24-2020 Facesheet [id number]:127 [facility] Provider Letter FTMCon 03-24 Provider Letter [facility] Lawrence Marks, [address] [address] [place] [address] Re: GLENN QUIÑONES Date of : 1975 Thank you for your referral of Glenn Quiñones who was seen on consultation on March 22, 2020, for uncontrolled GERD. I have enclosed my consultation notes for your review An EGD is planned for further evaluation. I will be happy to follow Glenn should his symptoms persist. Sincerely, Mario Zayas MD General Surgery [facility] Ambulatory Clinical Summaryo n 03-22-2020 Ambulatory Clinical Summary {[id number]}CD:[id number] 68 [facility] Patient Educationon 03-20-19 21 Patient Education Hypertension Hypertension is another name for high blood pressure. High blood pressure may mean that your heart needs to work harder to pump blood. Blood pressure consists of two numbers, which includes a higher number over a lower number (example: 110/72). HOME CARE ? Make lifestyle changes as told by your doctor. This may include weight loss and exercise. ? Take your blood pressure medicine every day. ? Limit how much salt you use. ? Stop smoking if you smoke. ? Do not use drugs. ? Talk to your doctor if you are using decongestants or control pills. These medicines might make blood pressure higher. ? Females should not drink more than 1 alcoholic drink per day. Males should not drink more than 2 alcoholic drinks per day. ? See your doctor as told. GET HELP RIGHT AWAY IF: ? You have a blood pressure reading with a top number of 180 or higher. ? You get a very bad headache. ? You get blurred or changing vision. ? You feel confused. ? You feel weak, numb, or faint. ? You get chest or belly (abdominal ) pain. ? You throw up (vomit ). ? You cannot breathe very well. MAKE SURE YOU: ? Understand these instructions. ? Will watch your condition. ? Will get help right away if you are not doing well or get worse. Document Released: 08/19/2008 Document Revised: 05/25/2012 Document Reviewed: 08/19/2008 ExitCare? Patient Information ?2013 [employer]. Normal [facility] Physician Referralon 020 Physician Referral [id number]:127 Normal [facility] Cardiovascular Lab Reporton 07-24-2018 Cardiovascular Lab Report [facility] Patient Name: [facility] Glenn MR #: [id number] Department of Physician: Nidhi Clifford M.D. Division of Service Date: 07/23/2018 Cardiology Birthdate: 1975 Adult Cardiovascular Room #: [address] [place] [address] Cardiovascular Laboratory Report CARDIAC CATHETERIZATION REPORT CLINICAL PRESENTATION: The patient is a 42-year-old male with past medical history significant for hyperlipidemia and GERD. He has positive family history for premature coronary artery disease. He has been experiencing worsening chest pain in the last few weeks. He describes chest pain with exertion and at rest, multiple types including sharp and burning pain. He had a cardiac stress test in which he exercised well, but he had borderline EKG changes and negative nuclear perfusion imaging results. Given his ongoing symptoms, he is referred for coronary angiogram for definitive evaluation of his coronary arteries. FINAL IMPRESSION: 1. Mild coronary artery disease, appropriate for medical therapy. PLAN: 1. Medical therapy for coronary artery disease. 2. Aspirin 81 mg daily, long-term. 3. High-intensity statin as appropriate for medical therapy of coronary artery disease. PROCEDURES: Coronary angiogram, conscious sedation, 21 minutes. INDICATION: Unstable angina, CCS class 3, borderline abnormal cardiac stress test. DESCRIPTION OF PROCEDURE: The patient was brought to cardiac catheterization lab in a fasting state. Informed, written consent was obtained. He was prepped and draped in usual sterile fashion in the right wrist. Time-out was performed. He was given Versed and fentanyl sedation. A 1% lidocaine is infiltrated over the right radial artery. A 6-Mohawk Terumo Glidesheath slender was placed in right radial artery. All catheter exchanges were made over the Magic Torque guidewire. A 5-Mohawk Brewton catheter was engaged to the left main coronary artery and the right coronary artery. Coronary angiogram was performed in multiple orthogonal views using hand injection of contrast. At the end of procedure, all catheters wires were removed from the body. The right radial sheath was removed and a TR band was applied to obtain hemostasis. In addition, at the beginning of the procedure, the radial anti-vasospasm cocktail of verapamil 5 mg and nitroglycerin 200 mcg was administered through the sheath. There were no apparent complications. TOTAL CONTRAST: 30 mL. TOTAL CONSCIOUS SEDATION TIME: 21 minutes. TOTAL FLUOROSCOPY TIME: 2 minutes 52 seconds, 0.4 Gy. CORONARY FINDINGS: Hemodynamics: Aortic pressure 109/78 (MAP 94). CORONARY ANGIOGRAM: Left main coronary artery: Patent. 1. Left anterior descending coronary artery. LAD is a moderate-sized vessel and it has a large 1st diagonal branch. The mid LAD has 2 areas of 30% stenosis. The diagonal branch is patent. 2. Left circumflex coronary artery. Circumflex is a large vessel and gives rise to multiple obtuse marginal branches. The circumflex and the obtuse marginal branches are patent. 3. Right coronary artery. The RCA is a moderate-sized vessel and is dominant. The mid RCA has 30% stenosis. The CYNDI and PDA are patent. Electronically Signed by: Mode Landry M.D. 08/07/2018 02:11 P Mode Landry M.D. Date Dict: 07/23/2018/09:09 Rich/Mode Landry M.D. Date Trans: 07/24/2018 05:20 Rich/aston [id number] cc: Lawrence Marks M.D. [place] [id number] [facility] [id number] Alfredo Petty M.D. [facility] [address] [place] [facility] BASIC METABOLIC PANELon 05-0 Calcium [Mass/Vol] 9.3 mg/dL Normal 8.6-10.3 [facility] Comment on above: Performed By: #### 0 0071 #### [facility] [address] [place] [address], [facility] Chloride [Moles/Vol] 102 mmol/L Normal 98-107 [facility] Comment on above: Performed By: #### 0 0071 #### [facility] [address] [place] [address], [place] CO2 [Moles/Vol] 27 mmol/L Normal 21-31 [facility] Comment on above: Performed By: #### 0 0071 #### [facility] [address] [place] [address], [place] Creatinine [Mass/Vol] 0.89 mg/dL Normal 0.70-1.30 [facility] Comment on above: Performed By: #### 0 0071 #### [facility] [address] [place] [address], [place] GFR/1.73 sq M predicted among blacks MDRD (S/P/Bld) [Vol rate/Area] mL/min/{1.73_m2} Normal >60 [facility] Comment on above: Performed By: #### 0 0071 #### [facility] [address] [place] [address], [place] GFR/1.73 sq M predicted among non-blacks MDRD (S/P/Bld) [Vol rate/Area] mL/min/{1.73_m2} Normal >60 [facility] Comment on above: Performed By: #### 0 0071 #### [facility] [address] [place] [address], [place] Glucose [Mass/Vol] 131 mg/dL High 70-100 [facility] Comment on above: Performed By: #### 0 0071 #### [facility] [address] [facility] [place] [address], [facility] Potassium [Moles/Vol] 3.8 mmol/L Normal 3.5-5.1 [facility] Comment on above: Performed By: #### 0 0071 #### [facility] [address] [place] [address], [facility] Sodium [Moles/Vol] 138 mmol/L Normal 136-145 [facility] Comment on above: Performed By: #### 0 0071 #### [facility] [address] [facility] [place] [address], [facility] Urea nitrogen [Mass/Vol] 11 mg/dL Normal 7-25 [facility] Comment on above: Performed By: #### 0 0071 #### [facility] [address] Vital Signs Date Time Vital Sign Value Performing Clinician Facility 01-25-2023 09:20-0500 Body temperature 97.5 [degF] Ange Campbell Other [facility] 01-25-2023 09:20-0500 Body weight 93.44 kg Ange Campbell Other [facility] 01-25-2023 09:20-0500 Respiratory rate 18 /min Ange Campbell Other [facility] Other 01-25-2023 09:20-0500 SaO2% (BldA) [Mass fraction] 95 % Ange Campbell Other [facility] Other Encounters Encounter Date Encounter Type Care Provider Facility Start: 01-25-2023 End: 01-25-2023 ambulatory Ange Campbell Other [facility] Other Start: 01-25-2023 Office outpatient ne w 20 minutes Ange Campbell [facility] Start: 05-21-2022 End: 05-22-2022 [facility] Start: 05-15-2022 End: 05-16-2022 [facility]ulatory [facility] Start: 05-01-2022 End: 05-01-2022 ambulatory [facility] Start: 04-29-2022 Encounter for genera l adult medical examination without abnormal findings DR LAWRENCE MARKS [facility] Start: 04-25-2022 End: 04-26-[address] LAWRENCE MARKS Facility:[facility] Start: 04-25-2022 End: 04-26-2022 Encounter for general adult medical examination without abnormal findings DR LAWRENCE MARKS Facility:[facility] Start: 04-24-2022 End: 04-25-[address] LAWRENCE MARKS Facility:[facility] Start: 03-12-2022 End: 03-12-[address] LAWRENCE MARKS Facility:[facility] Start: 11-15-2021 End: 11-15-[address] LAWRENCE MARKS Facility:[facility] Start: 07-06-2021 End: 07-06-[address] DOCTOR MARTINEZ Facility:[facility] Start: 07-04-2021 End: 07-05-[address] LAWRENCE MARKS Facility:[facility] Start: 07-23-2018 End: 07-24-2018 Patient encounter procedure MODE LANDRY Facility:[facility] Procedures Date Procedure Procedure Detail Performing Clinician Start: 05-21-2022 Follow-up visit Follow-up DON DC Start: 04-24-[address] BETI MARKS Comment on above: Performed By: #### L IPID #### [facility] [address] [place] [address] Dr. Enriqueta Torres Start: 07-04-[address] BETI MARKS Comment on above: Performed By: #### L IPID #### [facility] [address] [place] [address] Dr. Enriqueta Torres Payers Date Payer Category Payer Unknown [id number] 2.16.8 [id number] 1975 Unknown [id number] 2.16.84 [id number] 1975 Unknown [id number] 2.16.84 [id number] 1975 Unknown [id number] 2.16.84 [id number] 1975 Unknown [id number] 2.16.84 [id number] 1975 Unknown [id number] 2.16.84 [id number] 1975 Unknown [id number] 2.16.84 [id number] 1957 Private Health Insurance [id number] Social History Date Type Detail Facility Sex Assigned At [facility] Other Evaluation note 01-25-2023 Note Date & Type Note Facility 01-25-2023 Evaluation note Encounter Date Diagnosis Assessment Notes Jan, Contact with and (suspected) exposure to covid-19 (ICD-10 - Z20.822) Jan, Bilateral otitis media, unspecified otitis media type (ICD-10 - H66.93) Middle ear infection: adult home care material was printed Drink plenty fluids, get plenty of rest. Take the amoxicillin as prescribed until gone. Take Tylenol or Motrin as needed for aches pains or fevers. Follow-up with your family physician if no improvement in 2 to 3 days [facility] Other Progress note 05-21-2022 Note Date & Type Note Facility 05-21-2022 Note Subjective Patient ID: Glenn Quiñones is a 46 y.o. male who presents for Follow-up (Glenn is here today for a follow up visit for GERD, s/p EGD and esophogram. ). HPI 46 years old white male with chronic heartburn. He is taking PPIs. Recent EGD showed esophagitis. Esophagram was performed. Review of Systems Constitutional: Negative. HENT: Negative. Respiratory: Negative. Cardiovascular: Negative. Gastrointestinal: Negative. Neurological: Negative. Objective Visit Vitals BP (!) 135/91 (BP Location: Left arm, Patient Position: Sitting) Pulse 68 Temp 36.8 ???C (98.2 ???F) Physical Exam Narrative & Impression FL ESOPHAGUS BARIUM SWALLOW 05/21/2022 8:59 AM SIGNS AND SYMPTOMS: Gastro esophageal reflux PROTOCOL: Fluoroscopic images of the esophagus were obtained after oral gas crystals redemonstration and during administration of barium paste contrast material. COMPARISON: None FINDINGS: There is normal transit of oral contrast through the esophagus and gas esophageal junction. Normal esophageal motility is demonstrated fluoroscopically. There is no evidence of mucosal thickening, mass, ulceration, or stricture. No active gastroesophageal reflux was elicited during the exam. Cumulative air Kerma: 96.99 mGy IMPRESSION: No active gastroesophageal reflux was elicited during the exam. Normal esophagram. Electronically signed: Rad Hollingsworth. Don Dc MD Physician General Surgery Op Note Signed Date of Service: 05/15/2022 12:00 PM Signed * No procedures listed * Operative Note Date: 05/15/2022 Location: [facility] Name: Glenn Quiñones, : 1975, Diagnosis * No Diagnosis Codes entered * * No Diagnosis Codes entered * GERD Procedures * No procedures documented on diagnosis form * Surgeons * No surgeons found in log * Procedure Summary Anesthesia: * No anesthesia type entered * ASA: ASA status not filed in the log. Estimated Blood Loss: None Total IV Fluids: 250 mL Drains: * None in log * Specimens ID Source Type Tests Collected By Collected At [facility]? Priority Lab ID A Gastroesophageal Junction Tissue HISTOLOGY - TISSUE EXAM Don Dc MD 05/15/22 12:58 PM No Routine Description: GEJUNTION r/o Barrettes Esophagus Comment: GEJUNTION r/o Barrettes Esophagus Staff: Sedation Nurse: Kait Redmond, GERARDO; Naomi Fernandez, GERARDO; Fabiana Mistry, GERARDO Endo Nurse: Zoe Mayorga RN Indications: Glenn Quiñones is an 46 y.o. male who is having surgery for * No pre-op diagnosis entered *. Procedure Details: Informed consent was obtained after explanation of the procedure including indications, description of the procedure, benefits and possible risks and complications of the procedure, and alternatives. Questions were answered. The patient's history was reviewed and a directed physical examination was performed prior to the procedure. Patient was monitored throughout the procedure with pulse oximetry and periodic assessment of vital signs. Patient was sedated as noted above. With the patient in the left lateral decubitus position, the Olympus videoendoscope was placed in the patient's mouth and under direct visualization passed into the esophagus. Visualization of the esophagus, stomach, and duodenum was performed during both introduction and withdrawal of the endoscope and retroflexed view of the proximal stomach was obtained. The scope was passed to the 2nd portion of the duodenum. The patient tolerated the procedure well and was taken to the recovery area in good condition. Findings:: Esophagus: abnormal: irregular Z line. Cold biopsy was performed. . Stomach: normal Duodenum: normal Recommendations: 1. -Await pathology., -Follow up with me. [phone] pager [phone] Assessment/Plan Heartburn Without hiatal hernia Without Anderson esophagus Positive esophagitis Recommend Carafate as needed. No diagnosis found. No orders of the defined types were placed in this encounter. No results found for this or any previous visit (from the past 36 hour(s)). No follow-ups on file. [facility] Clinical Note 05-15-2022 Note Date & Type Note Facility 05-15-2022 Note Patient: Glenn becker Pre-sedation Evaluation: Sedation necessary for: Analgesia Requesting service: surgery History of Present Illness: Heart burn Past Medical History: Diagnosis Date GERD (gastroesophageal reflux disease) Principle problems: Patient Active Problem List Diagnosis Date Noted Gastroesophageal reflux disease 08/04/2018 Chest pain 07/22/2018 Allergies: No Known Allergies [employer]/Current Medications: (Not in a hospital admission) Current Outpatient Medications Medication Sig Dispense Refill ezetimibe (Zetia) 10 mg tablet Take 10 mg by mouth in the morning. famotidine (Pepcid) 40 mg tablet Take 40 mg by mouth in the morning and at bedtime. simvastatin (Zocor) 40 mg tablet sucralfate (Carafate) 1 gram tablet Take 1 g by mouth in the morning, noon, at afternoon, at bedtime,. sildenafil (Viagra) 100 mg tablet TAKE 1 TABLET BY MOUTH ONCE A DAY 30 MINUTES BEFORE INTERCOURSE NEEDED NO MORE THAN EVERY 3 DAYS Current Facility-Administered Medications Medication Dose Route Frequency Provider Last Rate Last Admin sodium chloride 0.9 % infusion 20 mL/hr intravenous Continuous Don Dc MD 20 mL/hr at 05/15/22 1152 20 mL/hr at 05/15/22 1152 Past Surgical History: has a past surgical history that includes Esophagogastroduodenoscopy and Cardiac catheterization. Recent sedation/surgery (24 hours) No Review of Systems: Please check all that apply: No significant medical history test completed prior to procedure on any menstruating female: none NPO guidelines met: Yes Physical Exam Airway Mallampati: II Cardiovascular Rhythm: regular Rate: normal Dental Pulmonary - normal exam Breath sounds clear to auscultation Plan ASA 1 Moderate [facility] Clinical Note 05-15-2022 Note Date & Type Note Facility 05-15-2022 Note * No procedures list ed * Operative Note Date: 05/15/2022 Location: [facility] Name: Glenn Quiñones, : 1975, Diagnosis * No Diagnosis Codes entered * * No Diagnosis Codes entered * GERD Procedures * No procedures documented on diagnosis form * Surgeons * No surgeons found in log * Procedure Summary Anesthesia: * No anesthesia type entered * ASA: ASA status not filed in the log. Estimated Blood Loss: None Total IV Fluids: 250 mL Drains: * None in log * Specimens ID Source Type Tests Collected By Collected At [facility]? Priority Lab ID A Gastroesophageal Junction Tissue HISTOLOGY - TISSUE EXAM Don Dc MD 05/15/22 12:58 PM No Routine Description: GEJUNTION r/o Barrettes Esophagus Comment: GEJUNTION r/o Barrettes Esophagus Staff: Sedation Nurse: Kait Redmond RN; Naomi Fernandez RN; Fabiana Mistry RN Endo Nurse: Zoe Mayorga RN Indications: Glenn Quiñones is an 46 y.o. male who is having surgery for * No pre-op diagnosis entered *. Procedure Details: Informed consent was obtained after explanation of the procedure including indications, description of the procedure, benefits and possible risks and complications of the procedure, and alternatives. Questions were answered. The patient's history was reviewed and a directed physical examination was performed prior to the procedure. Patient was monitored throughout the procedure with pulse oximetry and periodic assessment of vital signs. Patient was sedated as noted above. With the patient in the left lateral decubitus position, the Olympus videoendoscope was placed in the patient's mouth and under direct visualization passed into the esophagus. Visualization of the esophagus, stomach, and duodenum was performed during both introduction and withdrawal of the endoscope and retroflexed view of the proximal stomach was obtained. The scope was passed to the 2nd portion of the duodenum. The patient tolerated the procedure well and was taken to the recovery area in good condition. Findings:: Esophagus: abnormal: irregular Z line. Cold biopsy was performed. . Stomach: normal Duodenum: normal Recommendations: 1. -Await pathology., -Follow up with me. [phone] pager [phone] [facility] Progress note 05-01-2022 Note Date & Type Note Facility 05-01-2022 Note Subjective Patient ID: Glenn Quiñones is a 46 y.o. male who presents for Consult (Glenn is here today for GERD. Patient states that he did have an EGD about 1 year with biopsy that was normal. ). HPI 46 years old white male is complaining of heartburn, epigastric pain and the chest pain for around 2 years. He is treated with Carafate and the famotidine with inconsistent effect. Review of Systems Constitutional: Negative. HENT: Negative. Eyes: Negative. Respiratory: Negative. Cardiovascular: Negative. Gastrointestinal: Negative. Endocrine: Negative. Genitourinary: Negative. Musculoskeletal: Negative. Skin: Negative. Allergic/Immunologic: Negative. Neurological: Negative. Hematological: Negative. Psychiatric/Behavioral: Negative. Objective Visit Vitals BP 134/87 (BP Location: Left arm, Patient Position: Sitting) Pulse 94 Temp 37.1 ???C (98.7 ???F) Physical Exam Constitutional: Appearance: Normal appearance. He is obese. HENT: Head: Normocephalic and atraumatic. Eyes: Pupils: Pupils are equal, round, and reactive to light. Cardiovascular: Rate and Rhythm: Normal rate. Pulmonary: Effort: Pulmonary effort is normal. Abdominal: General: Abdomen is flat. Bowel sounds are normal. Palpations: Abdomen is soft. Musculoskeletal: General: Normal range of motion. Cervical back: Normal range of motion. Skin: Capillary Refill: Capillary refill takes more than 3 seconds. Neurological: Mental Status: He is alert. Assessment/Plan Heartburn Epigastric pain Schedule EGD and esophagram. No diagnosis found. No orders of the defined types were placed in this encounter. No results found for this or any previous visit (from the past 36 hour(s)). No follow-ups on file. [facility] Clinical Note 03-23-2020 Note Date & Type Note Facility 03-23-2020 Note Chief Complaint referral for uncontrolled GERD HPI Staff 44 year old male presents on consultation from Dr. Marks for uncontrolled GERD. Protonix 40mg daily was not effective, changed to Pepcid 40mg daily along with Carafate 1gr QID. Has only been on this regimen for the past week so has not noted an improvement. Complains of long standing history of LUQ/chest/left arm pain. Denies nausea or vomiting. No change in bowels. No weight loss. History of Present Illness 44 yo male with h/o GERD, refractory; reports intermittent left chest pain/pressure; negative cardiac workup; worse with eating, no burning pain or regurgitation; no dysphagia or odynophagia; no N/V; on Protonix for a year with no improvement; recently switched to Pepcid and Carafate, no change yet; chews tobacco, since teenager; only abdominal surgery pyloromyotomy as infant; denies asa or NSAID use; no fmhx of GI malignancy or IBD; some intermittent BRBPR with wiping, attributed to external hemorrhoids that occasionally flare up; no blood in stools or change in bms. Review of Systems PHQ Score Initial Depression Screen Score: 0 ROS - Provider Constitutional: no fever, no sweats, no weight loss. Eyes: no glasses, no blurred vision, no visual loss. ENMT: no dentures, no hoarseness, no swallowing difficulties, no hearing loss, no ear infection(s), no nose bleeds. Cardiovascular: normal blood pressure, mild chest pain, regular heartbeat, no heart murmur. Respiratory: no shortness of breath, no cough, no asthma, no wheezing. Gastrointestinal: no nausea, no vomiting, no diarrhea, no constipation, no blood in stool, no change in bowel habits, no abdominal pain, no hepatitis. Genitourinary: no kidney stones, no urine infection, no dysuria. Musculoskeletal: no pain, no weakness. Skin: no changing moles, no rash, no skin lumps. Neurologic: no seizures, no epilepsy, no headache. Psychiatric: no emotional or psychiatric problem. Heme/Lymph: no bleeding problems, no anemia, no blood clots, no transfusions. Allergy/Immunologic: no swollen lymph nodes/glands, no IV drug abuse. Other: Additional ROS info: Except as noted in the above Review of Systems and in the History of Present Illness, all other systems have been reviewed and are negative or noncontributory. Physical Exam Vitals & Measurements T: 36.7 ?C (Tympanic) HR: 74(Peripheral) RR: 16 BP: 132/100 HT: 172.72 cm HT: 172.7 cm WT: 99.8 kg WT: 99.8 kg BMI: 33.45 HEENT: normal conjunctiva, sclera clear, no scleral icterus, EOM intact, PERRLA, oral mucosa moist without lesions. Neck: trachea midline, no mass, symmetric, no thyromegaly or nodules, no adenopathy Respiratory: lungs CTA, respirations non labored. Cardiovascular: regular rate and rhythm, no murmur, no pedal edema or varicosities. Gastrointestinal: obese, soft, non distended, no tenderness, no masses, no palpable hernias, diastasis recti no, no hepatosplenomegaly; normal bs Lymphatic: no cervical adenopathy, no axillary adenopathy, Musculoskeletal: normal gait, digits and nails without infection, nodes, cyanosis, clubbing. Skin: no rashes, no lesions, no ulcers, no subcutaneous nodules, induration. Psychiatric/Neuro: oriented to time, place, person, judgement normal, affect appropriate for age, insight intact, no focal deficits. Tests: review of old records completed, Discussed surgical options, risks, and possible complications with patient. Assessment/Plan 1. GERD - Gastro-esophageal reflux disease, (K21.9: Gastro-esophageal reflux disease without esophagitis)Chest pain due to GERD plan EGD under anesthesia for further evaluation; informed consent obtained. 3. Chews tobacco regularly (Z72.0: Tobacco use) discussed cancer risks,worsening GERD symptoms; recommend discontinuing. 4. BMI 33.0-33.9,adult (Z68.33: Body mass index [BMI] 33.0-33.9, adult) recommend diet and exercise. Follow-up No qualifying data available Patient Education Esophagogastroduodenoscopy Exercise to Lose Weight, [id number] Problem List/Past Medical History Ongoing Chest pain due to GERD Chews tobacco regularly Eczema GERD - Gastro-esophageal reflux disease Hyperlipidemia Primary hypertriglyceridemia PUD (peptic ulcer disease) Pyloric stenosis Sleep apnea Historical No qualifying data Procedure/Surgical History Cardiac catheter (07/23/2018), Congenital pyloric stenosis. Medications Dulera 100 mcg-5 mcg/inh inhalation aerosol, 2 puff(s), Inhalation, BID famotidine 40 mg Tab, 40 mg= 1 tab(s), Oral, BID simvastatin 40 mg Tab, Oral, Once a day (at bedtime) sucralfate tab, 1 gm= 1 tab(s), Oral, QIDACHS Ventolin HFA 90 mcg/inh Aerosol, 1 puff(s), Inhalation, Once, PRN Allergies No Known Allergies No Known Medication Allergies Social History Alcohol - Denies Alcohol Use, 08/26/2018 Substance Abuse - Denies Substance Abuse, 08/26/2018 Tobacco Former smoker, quit more than 30 days ago Tobacco Use:. Smokeless tobacco user withi (more content not included)... [facility] Comment on above: Result Comment: Elec tronically Signed By: ROMEO HARPER, Mario Kerr.[email or web address]\Date and Time Signed: 03/23/20 12:36 EST Clinical Note 03-22-2020 Note Date & Type Note Facility 03-22-2020 Note Esophagogastroduoden oscopy Esophagogastroduodenoscopy (EGD) is a procedure to examine the lining of the esophagus, stomach, and first part of the small intestine (duodenum ). A long, flexible, lighted tube with a camera attached (endoscope ) is inserted down the throat to view these organs. This procedure is done to detect problems or abnormalities, such as inflammation, bleeding, ulcers, or growths, in order to treat them. The procedure lasts about 5?20 minutes. It is usually an outpatient procedure, but it may need to be performed in emergency cases in the hospital. LET YOUR CAREGIVER KNOW ABOUT: ? Allergies to food or medicine. ? All medicines you are taking, including vitamins, herbs, eyedrops, and [id number] medicines and creams. ? Use of steroids (by mouth or creams). ? Previous problems you or members of your family have had with the use of anesthetics. ? Any blood disorders you have. ? Previous surgeries you have had. ? Other health problems you have. ? Possibility of , if this applies. RISKS AND COMPLICATIONS Generally, EGD is a safe procedure. However, as with any procedure, complications can occur. Possible complications include: ? Infection. ? Bleeding. ? Tearing (perforation ) of the esophagus, stomach, or duodenum. ? Difficulty breathing or not being able to breath. ? Excessive sweating. ? Spasms of the larynx. ? Slowed heartbeat. ? Low blood pressure. BEFORE THE PROCEDURE ? Do not eat or drink anything for 6?8 hours before the procedure or as directed by your caregiver. ? Ask your caregiver about changing or stopping your regular medicines. ? If you wear dentures, be prepared to remove them before the procedure. ? Arrange for someone to drive you home after the procedure. PROCEDURE ? A vein will be accessed to give medicines and fluids. A medicine to relax you (sedative ) and a pain reliever will be given through that access into the vein. ? A numbing medicine (local anesthetic ) may be sprayed on your throat for comfort and to stop you from gagging or coughing. ? A mouth guard may be placed in your mouth to protect your teeth and to keep you from biting on the endoscope. ? You will be asked to lie on your left side. ? The endoscope is inserted down your throat and into the esophagus, stomach, and duodenum. ? Air is put through the endoscope to allow your caregiver to view the lining of your esophagus clearly. ? The esophagus, stomach, and duodenum is then examined. During the exam, your caregiver may: ? Remove tissue to be examined under a microscope (biopsy ) for inflammation, infection, or other medical problems. ? Remove growths. ? Remove objects (foreign bodies ) that are stuck. ? Treat any bleeding with medicines or other devices that stop tissues from bleeding (hot cauters, clipping devices ). ? Widen (dilate ) or stretch narrowed areas of the esophagus and stomach. ? The endoscope will then be withdrawn. AFTER THE PROCEDURE ? You will be taken to a recovery area to be monitored. You will be able to go home once you are stable and alert. ? Do not eat or drink anything until the local anesthetic and numbing medicines have worn off. You may choke. ? It is normal to feel bloated, have pain with swallowing, or have a sore throat for a short time. This will wear off. ? Your caregiver should be able to discuss his or her findings with you. It will take longer to discuss the test results if any biopsies were taken. Document Released: 07/04/2005 Document Revised: 02/17/2013 Document Reviewed: 02/03/2013 ExitCare? Patient Information ?2013 [employer]. Exercise to Lose Weight Exercise and a healthy diet may help you lose weight. Your doctor may suggest specific exercises. EXERCISE IDEAS AND TIPS ? Choose low-cost things you enjoy doing, such as walking, bicycling, or exercising to workout videos. ? Take stairs instead of the elevator. ? Walk during your lunch break. ? Park your car further away from work or school. ? Go to a gym or an exercise class. ? Start with 5 to 10 minutes of exercise each day. Build up to 30 minutes of exercise 4 to 6 days a week. ? Wear shoes with good support and comfortable clothes. ? Stretch before and after working out. ? Work out until you breathe harder and your heart beats faster. ? Drink extra water when you exercise. ? Do not do so much that you hurt yourself, feel dizzy, or get very short of breath. Exercises that burn about 150 calories: ? Running 1 ? miles in 15 minutes. ? Playing volleyball for 45 to 60 minutes. ? Washing and waxing a car for 45 to 60 minutes. ? Playing touch football for 45 minutes. ? Walking 1 ? miles in 35 minutes. ? Pushing a stroller 1 ? miles in 30 minutes. ? Playing basketball for 30 minutes. ? Raking leaves for 30 minutes. ? Bicycling 5 miles in 30 minutes. ? Walking 2 miles in 30 minutes. ? Dancing for 30 minutes. ? Shoveling snow for 1 (more content not included)... [facility] History general Narrative - Reported Note Date & Type Note Facility History general Narrative - Reported Type Hospitalization History covid 2020 [facility] Other Summary Purpose Family History No Family History Records FoundNo Family History Records FoundNo Family History Records FoundNo Family History Records Found Advance Directives No Advanced Directives Records FoundNo Advanced Directives Records FoundNo Advanced Directives Records FoundNo Advanced Directives Records Found Additional Source Comments (unrecognized sect ion and content) No Status Records FoundNo Status Records FoundNo Status Records FoundNo Status Records Found INFORMATION SOURCE (unrecogn ized section and content) DATE CREATED AUTHOR 10/23/2018 [facility] DATE CREATED AUTHOR AUTHOR'S ORGANIZ ATION 07/12/2020 [facility] DATE CREATED AUTHOR AUTHOR'S ORGANIZ ATION 04/29/2022 [facility] DATE CREATED AUTHOR AUTHOR'S ORGANIZ ATION 05/23/2022 [facility] REASON FOR VISIT (unrecogniz ed section and content) CHILLS, HEADACHE, EARS HURT, NO ENERGEY FOR RECORDS PERTAINING TO PATIENTS WHO ARE OR HAVE BEEN ENROLLED IN A CHEMICAL DEPENDENCY/SUBSTANCEABUSE PROGRAM, SOME INFORMATION MAY BE OMITTED. This clinical summary was aggregated from multiple sources. Caution should be exercised in using it in the provision of clinical care. This summary normalizes information from multiple sources, and as a consequence, information in this document may materially change the coding, format and clinical context of patient data. In addition, data may be omitted in some cases. CLINICAL DECISIONS SHOULD BE BASED ON THE PRIMARY CLINICAL RECORDS. [facility] [employer] [facility] provides no warranty or guarantee of the accuracy or completeness of information in this document.
[2023-12-22 15:09] LABS: Estimated Average Glucose 114 mg/dL; Glycohemoglobin A1C 5.6 % (4.5-6.2)
[2023-12-22 16:04] LABS: Alanine Aminotransferase 52 U/L (16-63); Albumin Globulin Ratio 1.2; Albumin Level 4.1 g/dL (3.4-5.0); Alkaline Phosphatase 68 U/L (46-116); Anion Gap 13.8; Aspartate Amino Transferase 17 U/L (15-37); BUN Creatinine Ratio 14.7; Bilirubin Total 0.9 mg/dL (0.2-1.0); Calcium 9.4 mg/dL (8.5-10.1); Carbon Dioxide 28.2 mmol/L (21.0-32.0); Chloride 99 mmol/L (98-107); Chol HDL Ratio 4.2; Cholesterol 237 mg/dL (<=200); Estimated GFR (African America >60 (>=60 mL/min/1.73m^2); Estimated GFR (Non-African Ame >60 (>=60 mL/min/1.73m^2); Globulin 3.5 g/dL; Glucose 121 mg/dL (74-106); HDL Cholesterol 56 mg/dL (40-60); Sodium 137 mmol/L (136-145); Thyroid Stimulating Hormone 0.659 uIU/mL (0.358-3.740); Total Protein 7.6 g/dL (6.4-8.2); Triglycerides 282 mg/dL (<=150); VLDL CHOLESTEROL 56.4 mg/dL
[2023-12-24 03:08] LABS: Insulin 14.8 uIU/mL (2.6-24.9)
== END 2023-12-22 14:41 | disposition home or self-care (01) ==
LOC: LAB 14:40
PROVIDERS: PCP Family Medicine; Visit Provider Family Medicine
DX: Z00.00 Encounter for general adult medical examination without abnormal findings (principal); E78.5 Hyperlipidemia, unspecified; R73.09 Other abnormal glucose
CPT/HCPCS: 36415; 80053; 80061; 83036; 83525; 84436; 84443; 84481; 85025

== ENCOUNTER 2024-10-18 07:04 | Outpatient (OUT) | payer OTHER, SELFPAY ==
--- OUTSIDE RECORDS SUMMARY | 2024-10-18 07:07 | XMS_ITS | CCD ---
Author Organization [facility] Care Team Providers Care Economics Teacher Name Role Phone MODE LANDRY Admitting Unavailable MODE LANDRY Attending Unavailable LAWRENCE MARKS Primary Care Unavailable ALFREDO PETTY Referring Unavailable [...] Care Unavailable MISC, DR PRECIADO Consulting Unavailable ALBERTOY, DR BRAVO Admitting Unavailable HOY, DR BRAVO Attending Unavailable HOY, DR BRAVO Primary Care Unavailable HOY, DR BRAVO Consulting Unavailable HOY, DR BRAVO Admitting Unavailable HOY, DR BRAVO Attending Unavailable HOY, DR BRAVO Primary Care Unavailable HOY, DR BRAVO Consulting Unavailable DC, JIANLIN Referring Unavailable DC, JIANLIN Admitting Unavailable DC, JIANLIN Referring Unavailable DC, JIAJANENEIN Attending Unavailable DC, ENEDINAIN Attending Unavailable DC, ENEDINAIN Attending Unavailable Ange Campbell Unavailable Mario WALTERS Attending Unavailable Lawrence Marks Referring Unavailable Allergies Allergy Classification Reported Allergen(s) Allergy Type Date of Onset Reaction(s) Facility (1 source) No Known Medication Allergies; Translations: [No Known Medication Allergies] Propensity to adverse reactions (disorder) [facility] Repository Medications Current Medications Medication Drug Class(es) Dates [...] Facility COVID Quick Testingon 2022 Result Negative [employer] Other [place] ESOPHAGUS BARIUM SWALLOWo n 05-21-2022 [...] Normal esophagram. Electronically signed: Rad Hollingsworth. Normal [facility] Follow-Upon 05-21-2022 Follow-Up [id number] Glenn Quiñones 1975 M Date Provider Department Center 05/21/2022 [id number] DC [facility] SURG [place] Family History Problem Relation Age of Onset Diabetes Mother Heart disease Father Family Status - Relation Status Age at Mother Father Level of Service:06261 [place] OFFICE/OUTPATIENT ESTABLISHED LOW MDM 20-29 MIN Reason for Visit and Comments: Follow-up [985219] - Glenn is here today for a follow up visit for GERD, s/p EGD and esophogram. Normal [facility] 29on 05-15-2022 29 Encounter addended by: Deedee Almazan RN on: 05/16/2022 1:53 PM Actions taken: Flowsheet accepted, Contacts section saved Normal [facility] HISTOLOGY - TISSUE EXAMon LAB AP CASE REPORT Normal [facility] Comment on above: Result Comment: Surg ical Pathology Case: [id number] Authorizing Provider: Don Dc MD Collected: 05/15/2022 1258 [facility]: 05/15/2022 1433 [facility] Pathologist: Sho Mercado MD Specimen: Gastroesophageal Junction, GEJUNTION r/o Barrettes Esophagus Performed By: #### L [id number] ####[facility] ([facility])[address] [place] [address] LAB AP CLINICAL INFORMATION Order Diagnoses [facility] Comment on above: Result Comment: K21. 9 - Gastroesophageal reflux disease without esophagitis [ICD-10-CM] Performed By: #### L [id number] ####[facility] ([facility])[address] [place] [address] LAB AP GROSS DESCRIPTION [facility] Comment on above: Result Comment: A. G astroesophageal Junction. Part A is received in formalin labeled Glenn Sberna and GE JUNTION r/o Barrettes Esophagus. It consists of 2 pieces of andrade-pink, irregular mucosal tissue measuring 0.3 cm and 0.2 cm which are submitted in toto in 1 cassette. Marquez Mora, Pathologists' Oil Field Laborer Performed By: #### L [id number] ####[facility] ([facility])[address] [place] [address] LAB AP MICROSCOPIC DESCRIPTION Microscopic examination performed. [facility] Comment on above: Performed By: #### L [id number] ####[facility] ([facility])[address] [place] [address] LAB AP REPORT FINAL DIAGNOSIS NARRATIVE [facility] Comment on above: Result Comment: A. 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 -Esophageal squamous mucosa with no specific pathologic changes. -No evidence of intestinal metaplasia or dysplasia. Performed By: #### L [id number] ####[facility] ([facility])[address] [place] [address] HPon 05-15-2022 HP H&P reviewed. The patient was examined and there are no changes to the H&P. [facility] NURSNOTEon 05-15-[address] Dc aware of vitals. [facility] Consulton 05-01-2022 Consult [id number] Glenn Quiñones 1975 M Date Provider Department Center 05/01/2022 Kiana-ENEDINA DCTRA [facility] SURG [place] Family History Problem Relation Age of Onset Diabetes Mother Heart disease Father Family Status - Relation Status Age at Mother Father Level of Service:91642 [place] OFFICE/OUTPATIENT NEW LOW [facility] 30-44 MINUTES Reason for Visit and Comments: Consult [484] - Glenn is here today for GERD. Patient states that he did have an EGD about 1 year with biopsy that was normal. Normal [facility] HPon 05-01-2022 HP Subjective Patient ID: Glenn [...] Negative. Genitourinary: Negative. Musculoskeletal: Negative. Skin: Negative. Allergic/Immunologic : Negative. Neurological: Negative. Hematological: Negative. Psychiatric/Behavior al: Negative. Objective Visit Vitals BP 134/87 (BP [...] 36 hour(s)). No follow-ups on file. Normal [facility] LIPID PROFILEon 04-25-2022 CHOL-HDL RATIO NORM SEE BELOW Normal [facility] Comment on above: Result Comment: 3.3 - 4.4 LOW RISK 4.4 - 7.1 AVERAGE RISK 7.1 - 11.0 MODERATE RISK >11.0 HIGH RISK Performed By: #### L IPID #### [facility] [address] [address] [address] Enriqueta Torres Cholesterol [Mass/Vol] 229 mg/dL Critically high <=200 [facility] Comment on above: Performed By: #### L IPID #### [facility] [address] [address] [address] Enriqueta Torres Cholesterol in HDL [Mass/Vol] 51 mg/dL Normal 40-60 [facility] Comment on above: Performed By: #### L IPID #### [facility] [address] [address] [address] Enriqueta Torres Cholesterol in LDL [Mass/Vol] 126.4 mg/dL Normal [facility] Comment on above: Performed By: #### L IPID #### [facility] [address] [address] [address] Enriqueta Torres Cholesterol.total/C holesterol in HDL [Mass ratio] 4.5 {ratio} Normal [facility] Comment on above: Performed By: #### L IPID #### [facility] [id number] Enriqueta Torres HDL NORMAL > or = 60 mg/dl - LOW CARDIOVASCULAR RISK <40 mg/dl - HIGH CARDIOVASCULAR RISK Normal [facility] Comment on above: Performed By: #### L IPID #### [facility] [id number] Enriqueta Torres LDL CALC NORMAL SEE BELOW Normal [facility] Comment on above: Result Comment: <100 mg/dl OPTIMAL 100 - 129 mg/dl NEAR OR ABOVE OPTIMAL 130 - 159 mg/dl BORDERLINE HIGH 160 - 189 mg/dl HIGH >190 mg/dl VERY HIGH Performed By: #### L IPID #### [facility] [address] [address] [address] Enriqueta Torres Triglyceride [Mass/Vol] 258 mg/dL Critically high <=150 [facility] Comment on above: Performed By: #### L IPID #### [facility] [address] [place] [address] Dr. Enriqueta Torres VLDL CALC 51.6 mg/dL Normal [facility] Comment on above: Performed By: #### L IPID #### [facility] [address] [address] [address] Enriqueta Torres OCC BLD IMMUNO SCREENon OCCULT BLOOD Negative Normal NEGATIVE [facility] Comment on above: Performed By: #### O BSCRN #### [facility] [address] [place] [address] Dr. Enriqueta Torres TESTOSTERONE, TOTALon 2022 Testosterone [Mass/Vol] 285 ng/dL Normal 264-916 [facility] Comment on above: Result Comment: Adul t male reference interval is based on a population of healthy nonobese males (BMI <30) between 19 and 39 years old. Marlon, et.al. JCEM 2017,102;3011-3405. PMID: [id number]. Performed By: #### T ESTTOT #### [facility] [address] [place] [address] Dr. Enriqueta Torres CBC AUTO DIFFon 04-24-2022 BASO # 0.1 103/ul Normal 0.0-0.1 [facility] Comment on above: Performed By: #### L IPID #### [facility] [address] [place] [address] Dr. Enriqueta Torres Basophils/100 WBC (Bld) 0.6 % Normal 0.2-2.0 [facility] Comment on above: Performed By: #### L IPID #### [facility] [address] [place] [address] Dr. Enriqueta Torres EO # 0.1 103/ul Normal 0.0-0.7 [facility] Comment on above: Performed By: #### L IPID #### [facility] [address] [address] [address] Enriqueta Torres Eosinophils/100 WBC (Bld) 1.1 % Normal 0.9-7.0 [facility] Comment on above: Performed By: #### L IPID #### [facility] [address] [place] [address] Dr. Enriqueta Torres Erythrocyte distribution width (RBC) [Ratio] 12.2 % Normal 11.0-15.0 [facility] Comment on above: Performed By: #### L IPID #### [facility] [address] [place] [address] Dr. Enriqueta Torres Hematocrit (Bld) [Volume fraction] 46.2 % Normal 42.0-54.0 [facility] Comment on above: Performed By: #### L IPID #### [facility] [address] [place] [address] Dr. Enriqueta Torres Hemoglobin (Bld) [Mass/Vol] 16.5 g/dL Normal 14.0-18.0 [facility] Comment on above: Performed By: #### L IPID #### [facility] [address] [place] [address] Dr. Enriqueta Torres IG # 0.06 10e3/ul Critically high 0.00-0.03 [facility] Comment on above: Performed By: #### L IPID #### [facility] [address] [place] [address] Dr. Enriqueta Torres IG % 0.7 % Critically high 0.0-0.5 [facility] Comment on above: Performed By: #### L IPID #### [facility] [address] [place] [address] Dr. Enriqueta Torres LYMPH # 2.6 103/ul Normal 1.2-3.8 [facility] Comment on above: Performed By: #### L IPID #### [facility] [address] [place] [address] Dr. Enriqueta Torres Lymphocytes/100 WBC (Bld) 31.2 % Normal 20.5-60.0 [facility] Comment on above: Performed By: #### L IPID #### [facility] [address] [place] [address] Dr. Enriqueta Torres MANUAL DIFF REQ NO Normal [facility] Comment on above: Performed By: #### L IPID #### [facility] [address] [place] [address] Dr. Enriqueta Torres MCH (RBC) [Entitic mass] 31.6 pg Normal 25.9-34.0 [facility] Comment on above: Performed By: #### L IPID #### [facility] [address] [place] [address] Dr. Enriqueta Torres MCHC (RBC) [Mass/Vol] 35.7 g/dL Critically high 29.9-35.2 [facility] Comment on above: Performed By: #### L IPID #### [facility] [address] [place] [address] Dr. Enriqueta Torres MCV (RBC) [Entitic vol] 88.5 fL Normal 80.0-94.0 [facility] Comment on above: Performed By: #### L IPID #### [facility] [address] [place] [address] Dr. Enriqueta Torres MONO # 0.8 103/ul Normal 0.3-0.8 [facility] Comment on above: Performed By: #### L IPID #### [facility] [address] [place] [address] Dr. Enriqueta Torres Monocytes/100 WBC (Bld) 10.2 % Normal 1.7-12.0 [facility] Comment on above: Performed By: #### L IPID #### [facility] [address] [place] [address] Dr. Enriqueta Torres NEUT # 4.6 103/ul Normal 1.4-6.5 [facility] Comment on above: Performed By: #### L IPID #### [facility] [address] [place] [address] Dr. Enriqueta Torres Neutrophils/100 WBC (Bld) 56.2 % Normal 43.0-75.0 [facility] Comment on above: Performed By: #### L IPID #### [facility] [address] [address] [address] Enriqueta Torres Platelet mean volume (Bld) [Entitic vol] 9.1 fL Critically low 9.5-13.5 [facility] Comment on above: Performed By: #### L IPID #### [facility] [address] [address] [address] Enriqueta Torres PLT 260 103/ul Normal 150-450 [facility] Comment on above: Performed By: #### L IPID #### [facility] [address] [address] [address] Enriqueta Torres RBC 5.22 106/ul Normal 4.70-6.10 [facility] Comment on above: Performed By: #### L IPID #### [facility] [address] [place] [address] Dr. Enriqueta Torres WBC 8.2 103/ul Normal 4.0-11.0 [facility] Comment on above: Performed By: #### L IPID #### [facility] [address] [place] [address] Dr. Enriqueta Torres DIRECT LDLon 04-24-2022 Cholesterol in LDL [Mass/Vol] 129 mg/dL Normal [facility] Comment on above: Performed By: #### O BSCRN #### [facility] [address] [place] [address] Dr. Enriqueta Torres DLDL NORMAL SEE BELOW Normal [facility] Comment on above: Result Comment: <100 mg/dl OPTIMAL 100 - 129 mg/dl NEAR OR ABOVE OPTIMAL 130 - 159 mg/dl BORDERLINE HIGH 160 - 189 mg/dl HIGH >190 mg/dl VERY HIGH Performed By: #### O BSCRN #### [facility] [address] [place] [address] Dr. Enriqueta Torres FREE THYROXINE INDEX T7on FTI 2.31 Normal 1.30-4.50 [facility] Comment on above: Performed By: #### L IPID #### [facility] [address] [place] [address] Dr. Enriqueta Torres T3U 34.0 % Normal 33.0-40.0 [facility] Comment on above: Performed By: #### L IPID #### [facility] [address] [address] [address] Enriqueta Torres T4 [Mass/Vol] 6.80 ug/dL Normal 4.50-12.10 [facility] Comment on above: Performed By: #### L IPID #### [facility] [address] [address] [address] Enriqueta Torres GLYCOHEMOGLOBIN A1Con 2022 ADA RECOMMENDATION SEE BELOW Normal [facility] Comment on above: Result Comment: ADA RECOMMENDED LIMIT 4.0 - 6.0 ADA THERAPEUTIC TARGET < 7.0 ACTION SUGGESTED > 7.0 Performed By: #### L IPID #### [facility] [address] [place] [address] Dr. Enriqueta Torres Glucose [Mass/Vol] 126 mg/dL Normal [facility] Comment on above: Performed By: #### L IPID #### [facility] [address] [place] [address] Dr. Enriqueta Torres HbA1c (Bld) [Mass fraction] 6.0 % Normal 4.5-6.2 [facility] Comment on above: Performed By: #### L IPID #### [facility] [address] [place] [address] Dr. Enriqueta Torres LIPID PROFILEon 04-24-2022 CHOL-HDL RATIO NORM SEE BELOW Normal [facility] Comment on above: Result Comment: 3.3 - 4.4 LOW RISK 4.4 - 7.1 AVERAGE RISK 7.1 - 11.0 MODERATE RISK >11.0 HIGH RISK Performed By: #### L IPID #### [facility] [address] [place] [address] Dr. Enriqueta Torres Cholesterol [Mass/Vol] 250 mg/dL Critically high <=200 [facility] Comment on above: Performed By: #### L IPID #### [facility] [address] [place] [address] Dr. Enriqueta Torres Cholesterol in HDL [Mass/Vol] 42 mg/dL Normal 40-60 [facility] Comment on above: Performed By: #### L IPID #### [facility] [address] [address] [address] Enriqueta Torres Cholesterol.total/C holesterol in HDL [Mass ratio] 6.0 {ratio} Normal [facility] Comment on above: Performed By: #### L IPID #### [facility] [address] [address] [address] Enriqueta Torres HDL NORMAL > or = 60 mg/dl - LOW CARDIOVASCULAR RISK <40 mg/dl - HIGH CARDIOVASCULAR RISK Normal [facility] Comment on above: Performed By: #### L IPID #### [facility] [address] [address] [address] Enriqueta Torres LDL CALC NORMAL SEE BELOW Normal [facility] Comment on above: Result Comment: <100 mg/dl OPTIMAL 100 - 129 mg/dl NEAR OR ABOVE OPTIMAL 130 - 159 mg/dl BORDERLINE HIGH 160 - 189 mg/dl HIGH >190 mg/dl VERY HIGH Performed By: #### L IPID #### [facility] [address] [place] [address] Dr. Enriqueta Torres Triglyceride [Mass/Vol] 507 mg/dL Critically high <=150 [facility] Comment on above: Performed By: #### L IPID #### [facility] [address] [place] [address] Dr. Enriqueta Torres VLDL CALC 101.4 mg/dL Normal [facility] Comment on above: Performed By: #### L IPID #### [facility] [address] [address] [address] Enriqueta Torres PROF 14(COMP METB)on 023 Albumin [Mass/Vol] 4.2 g/dL Normal 3.4-5.0 [facility] Comment on above: Performed By: #### L IPID #### [facility] [address] [place] [address] Dr. Enriqueta Torres Albumin/Globulin [Mass ratio] 1.2 {ratio} Normal [facility] Comment on above: Performed By: #### L IPID #### [facility] [address] [address] [address] Enriqueta Torres ALP [Catalytic activity/Vol] 69 U/L Normal 46-116 [facility] Comment on above: Performed By: #### L IPID #### [facility] [address] [place] [address] Dr. Enriqueta Torres ALT [Catalytic activity/Vol] 69 U/L Critically high 16-63 [facility] Comment on above: Performed By: #### L IPID #### [facility] [address] [address] [address] Enriqueta Torres Anion gap [Moles/Vol] 13.3 mmol/L Normal [facility] Comment on above: Performed By: #### L IPID #### [facility] [address] [place] [address] Dr. Enriqueta Torres AST [Catalytic activity/Vol] 20 U/L Normal 15-37 [facility] Comment on above: Performed By: #### L IPID #### [facility] [address] [place] [address] Dr. Enriqueta Torres Bilirubin [Mass/Vol] 1.0 mg/dL Normal 0.2-1.0 [facility] Comment on above: Performed By: #### L IPID #### [facility] [address] [place] [address] Dr. Enriqueta Torres Calcium [Mass/Vol] 9.4 mg/dL Normal 8.5-10.1 [facility] Comment on above: Performed By: #### L IPID #### [facility] [address] [place] [address] Dr. Enriqueat Torres Chloride [Moles/Vol] 99 mmol/L Normal 98-107 [facility] Comment on above: Performed By: #### L IPID #### [facility] [address] [address] [address] Enriqueta Torres CO2 [Moles/Vol] 30.0 mmol/L Normal 21.0-32.0 [facility] Comment on above: Performed By: #### L IPID #### [facility] [address] [place] [address] Dr. Enriqueta Torres Creatinine [Mass/Vol] 1.01 mg/dL Normal 0.70-1.30 [facility] Comment on above: Performed By: #### L IPID #### [facility] [address] [place] [address] Dr. Enriqueta Torres EGFR-AF SURINAMESE >60 Normal >=60 [facility] Comment on above: Performed By: #### L IPID #### [facility] [address] [place] [address] Dr. Enriqueta Torres EGFR-NON AF SURINAMESE >60 Normal >=60 [facility] Comment on above: Performed By: #### L IPID #### [facility] [address] [place] [address] Dr. Enriqueta Torres Globulin (S) [Mass/Vol] 3.5 g/dL Normal [facility] Comment on above: Performed By: #### L IPID #### [facility] [address] [place] [address] Dr. Enriqueta Torres Glucose [Mass/Vol] 134 mg/dL Critically high 74-106 [facility] Comment on above: Performed By: #### L IPID #### [facility] [address] [place] [address] Dr. Enriqueta Torres Potassium [Moles/Vol] 4.3 mmol/L Normal 3.5-5.1 [facility] Comment on above: Performed By: #### L IPID #### [facility] [address] [place] [address] Dr. Enriqueta Torres Protein [Mass/Vol] 7.7 g/dL Normal 6.4-8.2 [facility] Comment on above: Performed By: #### L IPID #### [facility] [address] [place] [address] Dr. Enriqueta Torres Sodium [Moles/Vol] 138 mmol/L Normal 136-145 [facility] Comment on above: Performed By: #### L IPID #### [facility] [address] [place] [address] Dr. Enriqueta Torres Urea nitrogen [Mass/Vol] 17.0 mg/dL Normal 7.0-18.0 [facility] Comment on above: Performed By: #### L IPID #### [facility] [address] [place] [address] Dr. Enriqueta Torres Urea nitrogen/Creatinine [Mass ratio] 16.8 mg/mg Normal [facility] Comment on above: Performed By: #### L IPID #### [facility] [address] [place] [address] Dr. Enriqueta Torres TSHon 04-24-2022 TSH 1.606 uIU/mL Normal 0.358-3.740 [facility] Comment on above: Performed By: #### L IPID #### [facility] [address] [place] [address] Dr. Enriqueta Torres Covid-19 PCR ([facility])on 02-15 SARS-CoV-2 (COVID-19) RNA CESAR+probe Ql (Unsp spec) Detected Critically abnormal NOT DETECTED [facility] Comment on above: Result Comment: This test is not yet approved or cleared by the [place] FDA. When there are no FDA-approved or cleared tests available, and other criteria are met, FDA can make tests available under an emergency access mechanism called an Emergency Use Authorization (EUA). The EUA for this test is supported by the [place] of Health and Human Service's declaration that [...] used). Performed By: #### O BSCRN #### [facility] [address] [place], [place] [id number] Dr. Enriqueta Torres INFLUENZA A AND B AGon 03-12 INFLUANEGH SEE BELOW Normal [facility] [facility] Comment on above: Result Comment: Nega tive for Flu A protein angiten. Infection due to Flu A cannot be ruled out. Flu A angiten in the sample may be below the detection limit of the test. Performed By: #### L IPID #### [facility] [address] [place] [address] Dr. Enriqueta [facility] SEE BELOW Normal [facility] Comment on above: Result Comment: Nega tive for Flu B protein antigen. Infection due to Flu B cannot be ruled out. Flu B antigen in the sample may be below the detection limit of the test. Performed By: #### L IPID #### [facility] [address] [place] [address] Dr. Enriqueta Torres INFLUENZA A AG Negative Normal NEGATIVE SEE COMMENT [facility] Comment on above: Performed By: #### L IPID #### [facility] [address] [place] [address] Dr. Enriqueta Torres INFLUENZA B AG Negative Normal NEGATIVE SEE COMMENT [facility] Comment on above: Performed By: #### L IPID #### [facility] [address] [place] [address] Dr. Enriqueta Torres INTERNAL CONTROLS Within Normal Limits Normal Wi thin Normal Limits [facility] Comment on above: Performed By: #### L IPID #### [facility] [address] [place] [address] Dr. Enriqueta Torres Covid-19 PCR ([facility])on SARS-CoV-2 (COVID-19) RNA CESAR+probe Ql (Unsp spec) Not detected Normal NOT DETECTED [facility] Comment on above: Result Comment: When [...] for this test is supported by the Toe Stripper of Health and Human Service's declaration that [...] used). Performed By: #### O BSCRN #### [facility] [address] [place] [address] Dr. Enriqueta Torres OCC BLD IMMUNO SCREENon 06-16 OCCULT BLOOD Negative Normal NEGATIVE [facility] Comment on above: Performed By: #### O BSCRN #### [facility] [address] [place] [address] Dr. Erniqueta Torres CBC AUTO DIFFon 07-04-2021 BASO # 0.1 103/ul Normal 0.0-0.1 [facility] Comment on above: Performed By: #### C BC #### [facility] [address] [place] [address] Dr. Enriqueta Torres Basophils/100 WBC (Bld) 0.8 % Normal 0.2-2.0 [facility] Comment on above: Performed By: #### C BC #### [facility] [address] [place] [address] Dr. Enriqueta Torres EO # 0.1 103/ul Normal 0.0-0.7 [facility] Comment on above: Performed By: #### C BC #### [facility] [address] [place] [address] Dr. Enriqueta Torres Eosinophils/100 WBC (Bld) 1.8 % Normal 0.9-7.0 [facility] Comment on above: Performed By: #### C BC #### [facility] [address] [place] [address] Dr. Enriqueta Torres Erythrocyte distribution width (RBC) [Ratio] 11.5 % Normal 11.0-15.0 [facility] Comment on above: Performed By: #### C BC #### [facility] [address] [place] [address] Dr. Enriqueta Torres Hematocrit (Bld) [Volume fraction] 48.2 % Normal 42.0-54.0 [facility] Comment on above: Performed By: #### C BC #### [facility] [address] [place] [address] Dr. Enriqueta Torres Hemoglobin (Bld) [Mass/Vol] 16.9 g/dL Normal 14.0-18.0 [facility] Comment on above: Performed By: #### C BC #### [facility] [address] [place] [address] Dr. Enriqueta Torres IG # 0.04 10e3/ul Critically high 0.00-0.03 [facility] Comment on above: Performed By: #### C BC #### [facility] [address] [place] [address] Dr. Enriqueta Torres IG % 0.5 % Normal 0.0-0.5 [facility] Comment on above: Performed By: #### C BC #### [facility] [address] [place] [address] Dr. Enriqueta Torres LYMPH # 1.8 103/ul Normal 1.2-3.8 [facility] Comment on above: Performed By: #### C BC #### [facility] [address] [place] [address] Dr. Enriqueta Torres Lymphocytes/100 WBC (Bld) 24.0 % Normal 20.5-60.0 [facility] Comment on above: Performed By: #### C BC #### [facility] [address] [place] [address] Dr. Enriqueta Torres MANUAL DIFF REQ NO Normal [facility] Comment on above: Performed By: #### C BC #### [facility] [address] [place] [address] Dr. Enriqueta Torres MCH (RBC) [Entitic mass] 30.2 pg Normal 25.9-34.0 [facility] Comment on above: Performed By: #### C BC #### [facility] [address] [place] [address] Dr. Enriqueta Torres MCHC (RBC) [Mass/Vol] 35.1 g/dL Normal 29.9-35.2 [facility] Comment on above: Performed By: #### C BC #### [facility] [address] [place] [address] Dr. Enriqueta Torres MCV (RBC) [Entitic vol] 86.1 fL Normal 80.0-94.0 [facility] Comment on above: Performed By: #### C BC #### [facility] [address] [place] [address] Dr. Enriqueta Torres MONO # 0.8 103/ul Normal 0.3-0.8 [facility] Comment on above: Performed By: #### C BC #### [facility] [address] [place] [address] Dr. Enriqueta Torres Monocytes/100 WBC (Bld) 10.2 % Normal 1.7-12.0 [facility] Comment on above: Performed By: #### C BC #### [facility] [address] [place] [address] Dr. Enriqueta Torres NEUT # 4.8 103/ul Normal 1.4-6.5 [facility] Comment on above: Performed By: #### C BC #### [facility] [address] [place] [address] Dr. Enriqueta Torres Neutrophils/100 WBC (Bld) 62.7 % Normal 43.0-75.0 [facility] Comment on above: Performed By: #### C BC #### [facility] [address] [place] [address] Dr. Enriqueta Torres Platelet mean volume (Bld) [Entitic vol] 9.2 fL Critically low 9.5-13.5 [facility] Comment on above: Performed By: #### C BC #### [facility] [address] [place] [address] Dr. Enriqueta Torres PLT 262 103/ul Normal 150-450 [facility] Comment on above: Performed By: #### C BC #### [facility] [address] [place] [address] Dr. Enriqueta Torres RBC 5.60 106/ul Normal 4.70-6.10 [facility] Comment on above: Performed By: #### C BC #### [facility] [address] [place] [address] Dr. Enriqueta Torres WBC 7.6 103/ul Normal 4.0-11.0 [facility] Comment on above: Performed By: #### C BC #### [facility] [address] [address] [address] Enriqueta Torres FREE T3on 07-04-2021 FREE T3 2.92 pg/mlL Normal 2.77-5.27 [facility] Comment on above: Performed By: #### T 4, TSH, FT3, LIPID, CMP #### [facility] [address] [address] [address] Enriqueta Torres GLYCOHEMOGLOBIN A1Con 2021 ADA RECOMMENDATION ADA THERAPEUTIC TARGET 6.0 - 7.0 ACTION SUGGESTED > 7.0 Normal [facility] Comment on above: Performed By: #### L IPID #### [facility] [address] [place] [address] Dr. Enriqueta Torres Glucose [Mass/Vol] 117 mg/dL Normal [facility] Comment on above: Performed By: #### L IPID #### [facility] [address] [place] [address] Dr. Enriqueta Torres HbA1c (Bld) [Mass fraction] 5.7 % Normal <=6.0 [facility] Comment on above: Performed By: #### L IPID #### [facility] [address] [place] [address] Dr. Enriqueta Torres LIPID PROFILEon 07-04-2021 CHOL-HDL RATIO NORM SEE BELOW Normal [facility] Comment on above: Result Comment: 3.3 - 4.4 LOW RISK 4.4 - 7.1 AVERAGE RISK 7.1 - 11.0 MODERATE RISK >11.0 HIGH RISK Performed By: #### T 4, TSH, FT3, LIPID, CMP #### [facility] [address] [place] [address] Dr. Enriqueta Torres Cholesterol [Mass/Vol] 232 mg/dL Critically high <=200 [facility] Comment on above: Performed By: #### T 4, TSH, FT3, LIPID, CMP #### [facility] [address] [place] [address] Dr. Enriqueta Torres Cholesterol in HDL [Mass/Vol] 52 mg/dL Normal 40-60 [facility] Comment on above: Performed By: #### T 4, TSH, FT3, LIPID, CMP #### [facility] [address] [address] [address] Enriqueta Torres Cholesterol in LDL [Mass/Vol] 139.4 mg/dL Normal [facility] Comment on above: Performed By: #### T 4, TSH, FT3, LIPID, CMP #### [facility] [address] [address] [address] Enriqueta Torres Cholesterol.total/C holesterol in HDL [Mass ratio] 4.5 {ratio} Normal [facility] Comment on above: Performed By: #### T 4, TSH, FT3, LIPID, CMP #### [facility] [address] [place] [address] Dr. Enriqueta Torres HDL NORMAL > or = 60 mg/dl - LOW CARDIOVASCULAR RISK <40 mg/dl - HIGH CARDIOVASCULAR RISK Normal [facility] Comment on above: Performed By: #### T 4, TSH, FT3, LIPID, CMP #### [facility] [address] [place] [address] Dr. Enriqueta Torres LDL CALC NORMAL SEE BELOW Normal [facility] Comment on above: Result Comment: <100 mg/dl OPTIMAL 100 - 129 mg/dl NEAR OR ABOVE OPTIMAL 130 - 159 mg/dl BORDERLINE HIGH 160 - 189 mg/dl HIGH >190 mg/dl VERY HIGH Performed By: #### T 4, TSH, FT3, LIPID, CMP #### [facility] [address] [address] [address] Enriqueta Torres Triglyceride [Mass/Vol] 203 mg/dL Critically high <=150 [facility] Comment on above: Performed By: #### T 4, TSH, FT3, LIPID, CMP #### [facility] [address] [place] [address] Dr. Enriqueta Torres VLDL CALC 40.6 mg/dL Normal [facility] Comment on above: Performed By: #### T 4, TSH, FT3, LIPID, CMP #### [facility] [address] [place] [address] Dr. Enriqueta Torres PROF 14(COMP METB)on 022 Albumin [Mass/Vol] 4.0 g/dL Normal 3.4-5.0 [facility] Comment on above: Performed By: #### T 4, TSH, FT3, LIPID, CMP #### [facility] [address] [place] [address] Dr. Enriqueta Torres Albumin/Globulin [Mass ratio] 1.1 {ratio} Normal [facility] Comment on above: Performed By: #### T 4, TSH, FT3, LIPID, CMP #### [facility] [address] [place] [address] Dr. Enriqueta Torres ALP [Catalytic activity/Vol] 69 U/L Normal 46-116 [facility] Comment on above: Performed By: #### T 4, TSH, FT3, LIPID, CMP #### [facility] [address] [place] [address] Dr. Enriqueta Torres ALT [Catalytic activity/Vol] 45 U/L Normal 16-63 [facility] Comment on above: Performed By: #### T 4, TSH, FT3, LIPID, CMP #### [facility] [address] [place] [address] Dr. Enriqueta Torres Anion gap [Moles/Vol] 10.6 mmol/L Normal [facility] Comment on above: Performed By: #### T 4, TSH, FT3, LIPID, CMP #### [facility] [address] [place] [address] Dr. Enriqueta Torres AST [Catalytic activity/Vol] 18 U/L Normal 15-37 [facility] Comment on above: Performed By: #### T 4, TSH, FT3, LIPID, CMP #### [facility] [address] [place] [address] Dr. Enriqueta Torres Bilirubin [Mass/Vol] 0.7 mg/dL Normal 0.2-1.3 [facility] Comment on above: Performed By: #### T 4, TSH, FT3, LIPID, CMP #### [facility] [address] [place] [address] Dr. Enriqueta Torres Calcium [Mass/Vol] 8.8 mg/dL Normal 8.5-10.1 [facility] Comment on above: Performed By: #### T 4, TSH, FT3, LIPID, CMP #### [facility] [address] [place] [address] Dr. Enriqueta Torres Chloride [Moles/Vol] 101 mmol/L Normal 98-107 [facility] Comment on above: Performed By: #### T 4, TSH, FT3, LIPID, CMP #### [facility] [address] [place] [address] Dr. Enriqueta Torres CO2 [Moles/Vol] 31.5 mmol/L Critically high 22.0-30.0 [facility] Comment on above: Performed By: #### T 4, TSH, FT3, LIPID, CMP #### [facility] [address] [place] [address] Dr. Enriqueta Torres Creatinine [Mass/Vol] 1.00 mg/dL Normal 0.66-1.25 [facility] Comment on above: Performed By: #### T 4, TSH, FT3, LIPID, CMP #### [facility] [address] [place] [address] Dr. Enriqueta Torres EGFR-AF SURINAMESE >60 Normal >=60 [facility] Comment on above: Performed By: #### T 4, TSH, FT3, LIPID, CMP #### [facility] [address] [place] [address] Dr. Enriqueta Torres EGFR-NON AF SURINAMESE >60 Normal >=60 [facility] Comment on above: Performed By: #### T 4, TSH, FT3, LIPID, CMP #### [facility] [address] [place] [address] Dr. Enriqueta Torres Globulin (S) [Mass/Vol] 3.6 g/dL Normal [facility] Comment on above: Performed By: #### T 4, TSH, FT3, LIPID, CMP #### [facility] [address] [place] [address] Dr. Enriqueta Torres Glucose [Mass/Vol] 130 mg/dL Critically high 74-106 [facility] Comment on above: Performed By: #### T 4, TSH, FT3, LIPID, CMP #### [facility] [address] [place] [address] Dr. Enriqueta Torres Potassium [Moles/Vol] 4.1 mmol/L Normal 3.4-5.0 [facility] Comment on above: Performed By: #### T 4, TSH, FT3, LIPID, CMP #### [facility] [address] [place] [address] Dr. Enriqueta Torres Protein [Mass/Vol] 7.6 g/dL Normal 6.1-8.2 [facility] Comment on above: Performed By: #### T 4, TSH, FT3, LIPID, CMP #### [facility] [address] [place] [address] Dr. Enriqueta Torres Sodium [Moles/Vol] 139 mmol/L Normal 137-145 [facility] Comment on above: Performed By: #### T 4, TSH, FT3, LIPID, CMP #### [facility] [address] [place] [address] Dr. Enriqueta Torres Urea nitrogen [Mass/Vol] 16.0 mg/dL Normal 7.0-18.0 [facility] Comment on above: Performed By: #### T 4, TSH, FT3, LIPID, CMP #### [facility] [address] [place] [address] Dr. Enriqueta Torres Urea nitrogen/Creatinine [Mass ratio] 16.0 mg/mg Normal [facility] Comment on above: Performed By: #### T 4, TSH, FT3, LIPID, CMP #### [facility] [address] [place] [address] Dr. Enriqueta Torres T4on 07-04-2021 T4 [Mass/Vol] 6.70 ug/dL Normal 5.53-11.00 [facility] Comment on above: Performed By: #### T 4, TSH, FT3, LIPID, CMP #### [facility] [address] [place] [address] Dr. Enriqueta Torres TSHon 07-04-2021 TSH 0.998 uIU/mL Normal 0.470-4.680 [facility] Comment on above: Performed By: #### T 4, TSH, FT3, LIPID, CMP #### [facility] [address], [place] [address] Dr. nEriqueta Torres TSH RANGE SEE BELOW Normal [facility] Comment on above: Result Comment: <0.3 4 UIU/ml HYPERTHYROID 0.34-5.60 UIU/ml EUTHYROID >5.60 UIU/ml HYPOTHYROID Performed By: #### T 4, TSH, FT3, LIPID, CMP #### [facility] [address], [place] [address] Dr. Enriqueta Torres Cardiovascular Lab Reporton 07-24-2018 Cardiovascular Lab Report [facility] Patient Name: [facility] Glenn MR #: [id number] Department of Physician: Nidhi Clifford M.D. Division of Service Date: 07/23/2018 Cardiology Birthdate: 1975 Adult Cardiovascular Room #: [address] [place] [address] [address] [facility]. [place] [address] Cardiovascular Laboratory Report CARDIAC CATHETERIZATION REPORT CLINICAL [...] infiltrated over the right radial artery. A 6-[place]izen [place] Terumo [place] slender was placed in right radial artery. All catheter exchanges were made over the [employer] Torque guidewire. A 5-Citizen [place] catheter was engaged to the left main [...] Landry M.D. Date Trans: 07/24/2018 05:20 Rich/aston [id number] cc: Lawrence Marks M.D. [address] [facility] [address] Alfredo Petty M.D. [address] [place] [address] METABOLIC PANELon 05-0 Calcium [Mass/Vol] 9.3 mg/dL Normal 8.6-10.3 [facility] Comment on above: Performed By: #### 0 0071 #### [facility] [address] [place] [address], [place] Chloride [Moles/Vol] 102 mmol/L Normal 98-107 [facility] Comment on above: Performed By: #### 0 0071 #### [facility] [address] [place] [address], [place] CO2 [Moles/Vol] 27 mmol/L Normal 21-31 [facility] Comment on above: Performed By: #### 0 0071 #### [facility] [address] [place] [address], [place] Creatinine [Mass/Vol] 0.89 mg/dL Normal 0.70-1.30 [facility] Comment on above: Performed By: #### 0 0071 #### [facility] [address] [place] [address], [place] GFR/1.73 sq M predicted among blacks MDRD (S/P/Bld) [Vol rate/Area] mL/min/{1.73_m2} Normal >60 [facility] Comment on above: Performed By: #### 0 0071 #### [facility] [address] [place] [address], [place] GFR/1.73 sq M predicted among non-blacks MDRD (S/P/Bld) [Vol rate/Area] mL/min/{1.73_m2} Normal >60 [facility] Comment on above: Performed By: #### 0 0071 #### [facility] [address] [place] [address], [place] Glucose [Mass/Vol] 131 mg/dL High 70-100 [facility] Comment on above: Performed By: #### 0 0071 #### [facility] [address] [place] [address], [place] Potassium [Moles/Vol] 3.8 mmol/L Normal 3.5-5.1 [facility] Comment on above: Performed By: #### 0 0071 #### [facility] [address] [place] [address], [place] Sodium [Moles/Vol] 138 mmol/L Normal 136-145 [facility] Comment on above: Performed By: #### 0 0071 #### [facility] [address] [place] [address], [facility] Urea nitrogen [Mass/Vol] 11 mg/dL Normal 7-25 [facility] Comment on above: Performed By: #### 0 0071 #### [facility] [address] [place] [address], [facility] Vital Signs Date Time Vital Sign Value Performing Clinician Facility 01-25-2023 09:20-0500 Body temperature 97.5 [degF] Ange Shannan Other [facility] Other 01-25-2023 09:20-0500 Body weight 93.44 kg Ange Campbell Other [facility] Other 01-25-2023 09:20-0500 Respiratory rate 18 /min Ange Campbell Other [facility] Other 01-25-2023 09:20-0500 SaO2% (BldA) [Mass fraction] 95 % Ange Shannan Other [facility] Other Encounters Encounter Date Encounter Type Care Provider Facility Start: 10-21-2024 ambulatory Mario WALTERS Facility : [facility] Start: 01-25-2023 End: 01-25-2023 ambulatory Ange Campbell Other [employer] [facility] Other Start: 01-25-2023 Office outpatient ne w 20 minutes Ange Campbell [facility] Start: 05-21-2022 End: 05-22-2022 [facility] Start: 05-15-2022 End: 05-16-2022 ambulatory [facility] Start: 05-01-2022 End: 05-01-2022 ambulatory [facility] Start: 04-29-2022 Encounter for genera l adult medical examination without abnormal findings DR LAWRENCE MARKS [facility] Start: 04-25-2022 End: 04-26-[address] LAWRENCE [...] End: 07-24-2018 Patient encounter procedure MODE LANDRY Facility:[facility] Procedures Date Procedure Procedure Detail Performing Clinician Start: 05-21-2022 Follow-up visit Follow-up DON [facility] Start: 04-24-[address] BETI MARKS Comment on above: Performed By: #### L IPID #### [facility] [address] [place] [address] Dr. Enriqueta Torres Start: 07-04-[address] BETI MARKS Comment on above: Performed By: #### L IPID #### [facility] [address] [place] [address] Dr. Enriqueta Torres Payers Date Payer Category Payer Unknown [id number] 2.16.8 [id number] 1975 Unknown [id number] 2.16.84 [id number] 1975 Unknown [id number] 2.16.84 [id number] 1975 Unknown [id number] 2.16.84 [id number] 1975 Unknown [id number] 2.16.84 [id number] 1975 Unknown [id number] 2.16.84 [id number] 1975 Unknown [id number] 2.16.84 [id number] 1975 Unknown [id number] 2.16.8 [id number] 1957 Private Health Insurance [id number] Social History Date Type Detail Facility Sex Assigned At [facility] Other Evaluation note 01-25-2023 Note Date & [...] no improvement in 2 to 3 days [facility] Other Progress note 05-21-2022 Note Date & [...] listed * Operative Note Date: 05/15/2022 Location: [facility] Name: Glenn Quiñones, : 1975, [...] 1. -Await pathology., -Follow up with me. 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 No diagnosis found. No orders of the defined types were placed in this encounter. No results found for this or any previous visit (from the past 36 hour(s)). No follow-ups on file. 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 -Await pathology., -Follow up with me. [phone] pager [phone] [facility] Progress note 05-01-2022 Note Date & Type [...] past 36 hour(s)). No follow-ups on file. [facility] History general Narrative - Reported Note Date & Type Note Facility History general Narrative - Reported Type Hospitalization History [employer] Other Summary Purpose Family History No Family [...] and content) DATE CREATED AUTHOR 10/23/2018 [facility] DATE CREATED AUTHOR AUTHOR'S ORGANIZ ATION 04/29/2022 [facility] DATE CREATED AUTHOR AUTHOR'S ORGANIZ ATION 05/23/2022 [facility] DATE CREATED AUTHOR AUTHOR'S ORGANIZ ATION 10/12/2024 [facility] REASON FOR VISIT (unrecogniz ed section [...] BE BASED ON THE PRIMARY CLINICAL RECORDS. [employer] [facility]. provides no warranty or guarantee of the accuracy or completeness of information in this document.
[2024-10-18 07:30] LABS: Hematocrit 45.9 % (42.0-54.0); Hemoglobin 16.8 g/dL (14.0-18.0); Immature Granulocytes Abs Auto 0.03 10^3/uL (0.00-0.03); Immature Granulocytes Pct Auto 0.4 % (0.0-0.5); Lymphocytes Absolute Auto 1.7 10^3/uL (1.2-3.8); Mean Corpuscular HGB Conc 36.6 g/dL (29.9-35.2); Mean Corpuscular Hemoglobin 31.5 pg (25.9-34.0); Mean Corpuscular Volume 86.1 fL (80.0-94.0); Platelet Count 244 10^3/uL (150-450); Red Blood Count 5.33 10^6/uL (4.70-6.10); White Blood Count 7.0 10^3/uL (4.0-11.0)
[2024-10-18 09:26] LABS: Alanine Aminotransferase 54 U/L (16-63); Albumin Globulin Ratio 1.0; Albumin Level 3.8 g/dL (3.4-5.0); Alkaline Phosphatase 69 U/L (46-116); Anion Gap 10.2; Aspartate Amino Transferase 21 U/L (15-37); Blood Urea Nitrogen 15.0 mg/dL (7.0-18.0); Calcium 9.1 mg/dL (8.5-10.1); Carbon Dioxide 28.8 mmol/L (21.0-32.0); Chloride 101 mmol/L (98-107); Cholesterol 229 mg/dL (<=200); Estimated GFR (African America >60 (>=60 mL/min/1.73m^2); Estimated GFR (Non-African Ame >60 (>=60 mL/min/1.73m^2); Free T3 2.89 pg/mL (2.18-3.98); Globulin 3.7 g/dL; Glucose 144 mg/dL (74-106); HDL Cholesterol 51 mg/dL (40-60); Potassium 4.0 mmol/L (3.5-5.1); Sodium 136 mmol/L (136-145); Thyroid Stimulating Hormone 1.473 uIU/mL (0.358-3.740); Total Protein 7.5 g/dL (6.4-8.2); Triglycerides 398 mg/dL (<=150); Uric Acid 6.9 mg/dL (3.5-7.2); VLDL CHOLESTEROL 79.6 mg/dL
== END 2024-10-18 07:05 | disposition home or self-care (01) ==
LOC: LAB 07:04
PROVIDERS: PCP Family Medicine; Visit Provider Family Medicine
DX: Z00.00 Encounter for general adult medical examination without abnormal findings (principal); Z12.5 Encounter for screening for malignant neoplasm of prostate
CPT/HCPCS: 36415; 80053; 80061; 83036; 83525; 84403; 84436; 84443; 84481; 84550; 85025; G0103

== ENCOUNTER 2024-11-30 15:59 | Outpatient (RCR) | payer OTHER, SELFPAY | END 2024-12-15 12:47 | disposition home or self-care (01) | LOC: PT 15:59 | PROVIDERS: PCP Family Medicine; Visit Provider Family Medicine | DX: M54.12 Radiculopathy, cervical region (principal) | CPT/HCPCS: 20561; 97010; 97140; 97162 ==